=== PATIENT | male | born 1935 | race Caucasian/White ===

== ENCOUNTER 2016-07-24 13:34 | Emergency (ER) | payer OTHER ==
[2016-07-24 14:52] VITALS: RESP 16
[2016-07-24] MEDS ORDERED: DIPH,PERTUS(ACELL)TETVAC-LF 0.5 ML VIAL IM ONE (15:20)
--- NOTE | 2016-07-24 15:35 | ED ---
Wound/Laceration HPI - General Chief Complaint: Wound/Laceration Stated Complaint: Lac/Hand /steel cutter/[facility] Time Seen by Provider: 07/24/16 15:19 Source: patient Mode of arrival: ambulatory Limitations: no limitations - History of Present Illness Initial Comments: Patient is a 81-year-old right-handed male presenting to the emergency department with complaints of laceration to his left hand. Patient states he was at work opening up boxes with a box lidder when the knife slipped and he cut his hand. Onset of injury approximately one hour prior to arrival. Patient states that he immediately washed out his wound and applied a dressing. Patient denies previous injury or surgery to left upper extremity. Place: work Patient Tetanus UTD: No Context: accidental, sharp object use Associated Symptoms: pain (Patient currently denies pain, numbness or tingling) Treatments Prior to Arrival: bandage - Related Data Home Medications Medication Instructions Recorded Confirmed Aspirin 81 mg PO DAILY 07/24/16 07/24/16 Atorvastatin [Lipitor] 40 mg PO DAILY 07/24/16 07/24/16 Losartan Potassium 100 mg PO 07/24/16 Pioglitazone HCl/Metformin HCl 1 each PO 07/24/16 07/24/16 [Pioglitazone-Metformin 15850] Tragenta 5 mg PO DAILY 07/24/16 glipiZIDE [Glucotrol] 5 mg PO BID 07/24/16 07/24/16 Allergies Allergy/AdvReac Type Severity Reaction Status Date / Time No Known Allergies Allergy Verified 07/24/16 14:52 Review of Systems ROS Statement: Those systems with pertinent positive or pertinent negative responses have been documented in the HPI. ROS Other: All systems not noted in ROS Statement are negative. Past Medical History Past Medical History: Diabetes Mellitus Additional Past Medical History / Comment(s): kidney stones History of Any Multi-Drug Resistant Organisms: None Reported Past Surgical History: No Surgical Hx Reported Past Psychological History: No Psychological Hx Reported Smoking Status: Never smoker Past Alcohol Use History: None Reported Past Drug Use History: None Reported General Exam Limitations: no limitations General appearance: alert, in no apparent distress Head exam: Present: atraumatic, normocephalic, normal inspection Eye exam: Present: normal appearance ENT exam: Present: normal exam, normal oropharynx, mucous membranes moist Neck exam: Present: normal inspection, full ROM Respiratory exam: Present: normal lung sounds bilaterally. Absent: respiratory distress, wheezes, rales, rhonchi, stridor Cardiovascular Exam: Present: regular rate, normal rhythm, normal heart sounds GI/Abdominal exam: Present: soft, normal bowel sounds. Absent: tenderness Left Forearm Wrist exam: Present: full ROM, tenderness, laceration (9 mm linear laceration to radial aspect of left forearm palmar aspect) Hand Wrist exam: Present: normal inspection, full ROM, laceration. Absent: tenderness, swelling Neuro motor exam: Present: wrist extension intact, thumb opposition intact, thumb IP flexion intact, thumb adduction intact, fingers 2-5 abduction intact Neurosensory exam: Present: 2-point discrimination, radial nerve intact, ulnar nerve intact, median nerve intact Vascular: Present: normal capillary refill, radial pulse, brachial pulse, ulnar pulse. Absent: vascular compromise Neurological exam: Present: alert, oriented X3, normal gait, other (No focal deficits noted) Psychiatric exam: Present: normal affect, normal mood Skin exam: Present: warm, dry, intact, normal color. Absent: rash Course Vital Signs 07/24/16 14:48 Temperature 97.8 F Pulse Rate 82 Respiratory 16 Rate Blood Pressure 164/81 O2 Sat by Pulse 97 Oximetry Procedures - Laceration Laceration #1 Consent Obtained: verbal consent Time Out Performed: No Indication: laceration Site: hand (9 cm linear laceration extending from palmar side of left thumb to wrist.) Size (cm): 9 Description: linear Depth: simple, single layer Anesthetic Used: lidocaine 1% Anesthesia Technique: local infiltration Amount (mls): 3 Pre-repair: wound explored, irrigated extensively, deep structures intact Type of Sutures: nylon Size of Sutures: 5-0 Number of Sutures: 15 Technique: simple, interrupted Patient Tolerated Procedure: well, no complications Medical Decision Making - Medical Decision Making Laceration to left hand. X-ray negative for dislocation or fracture. Laceration sutured. Patient tolerated well. Wound care instructions provided. Discharge instructions and return parameters reviewed. 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 Additional scattered osteoarthritic changes such as at the first and second MCP joint and within the DIP joint. No acute fracture, subluxation, or dislocation. As read by radiologist, Dr. Shelley. Disposition Clinical Impression: Laceration of wrist, left Disposition: HOME SELF-CARE Condition: Good Instructions: Care For Your Stitches (ED), Laceration (ED) Additional Instructions: Postop wound care: Keep wound dry and clean for 24 hours; if dressing accidentally becomes wet, change dressing immediately. Gently clean the edges of the wound daily with a cotton swab saturated with peroxide to remove crust. Return immediately if signs of infection occur such as redness or red streaks progressing up and extremity, increasing pain, swelling, or fevers. Finish oral antibiotics as prescribed. Please return for suture removal in 10 days or sooner if complications. Please return to the emergency department if symptoms do not improve or get worse. Follow-up with orthopedic service with symptoms of numbness or tingling. Follow-up with primary care as necessary. Referrals: Dmitry Roach III, MD [Primary Care Provider] - 1-2 days Ronald Degroot MD [STAFF PHYSICIAN] - 1-2 days Time of Disposition: 17:01
--- NOTE | 2016-07-24 16:38 | XR ---
EXAMINATION TYPE: XR hand complete LT DATE OF EXAM: 07/24/2016 4:11 PM COMPARISON: NONE HISTORY: 81-year-old male laceration to the first digit on box loader, pain. TECHNIQUE: 3 views FINDINGS: Moderate to advanced degenerative change at the first CMC joint and triscaphe joint. Additional scatt ered osteoarthritic changes such as at the first and second MCP joint and within the DIP joints. No a cute fracture, subluxation, or dislocation. 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 No acute osseous abnormality seen.
[2016-07-24 17:36] VITALS: BP 148/72; PULSE 77; TEMP 98.3
== END 2016-07-24 17:25 | disposition home or self-care (01) ==
LOC: EC 13:34
DX: S61.512A Laceration without foreign body of left wrist, initial encounter (principal); S61.012A Laceration without foreign body of left thumb without damage to nail, initial encounter; M19.042 Primary osteoarthritis, left hand; E11.9 Type 2 diabetes mellitus without complications; Z79.82 Long term (current) use of aspirin; Z79.84 Long term (current) use of oral hypoglycemic drugs; Z79.899 Other long term (current) drug therapy; Z23 Encounter for immunization; W45.8XXA Other foreign body or object entering through skin, initial encounter; Y92.69 Other specified industrial and construction area as the place of occurrence of the external cause; Y93.89 Activity, other specified; Y99.0 Civilian activity done for income or pay
CPT/HCPCS: 12004; 90471; 90715; 99283

== ENCOUNTER 2019-07-15 09:03 | Inpatient (IN) | payer OTHER, MEDICARE ==
[2019-07-15] MEDS ORDERED: ONDANSETRON 4 MG/2 ML VIAL IVP STA (09:40)
[2019-07-15] MEDS ORDERED: SODIUM CHLORIDE 0.9% 1,000 ML IV STA (09:40)
--- NOTE | 2019-07-15 10:03 | ED ---
General Adult HPI - General Chief complaint: Upper Respiratory Infection Stated complaint: medication reaction Time Seen by Provider: 07/15/19 09:19 Source: patient, family, RN notes reviewed Mode of arrival: wheelchair Limitations: no limitations - History of Present Illness Initial comments: 84-year-old male with a past medical history of diabetes presents to the emergency department for a chief complaint of weakness. Patient has been weak for about a week now. He has also had nausea vomiting for about a week. Patient's states he started on iron tablets around the same time. Patient has also had a cough. Minimal shortness of breath associated with this. Subjective fevers at home. Patient has no other complaints at this time includi ng chest pain, abdominal pain, headache, or visual changes. - Related Data Home Medications Medication Instructions Recorded Confirmed Aspirin 81 mg PO DAILY 07/24/16 07/15/19 Atorvastatin [Lipitor] 40 mg PO DAILY 07/24/16 07/15/19 Losartan Potassium 100 mg PO DAILY 07/24/16 07/15/19 Pioglitazone HCl/Metformin HCl 1 each PO Q12H 07/24/16 07/15/19 [Pioglitazone-Metformin 15850] glipiZIDE [Glucotrol] 5 mg PO BID 07/24/16 07/15/19 Ascorbic Acid [Vitamin C] 250 mg PO BID 07/15/19 07/15/19 Ferrous Sulfate [Iron] 325 mg PO BID 07/15/19 07/15/19 Hydrochlorothiazide 25 mg PO DAILY 07/15/19 07/15/19 Levothyroxine Sodium 25 mcg PO DAILY 07/15/19 07/15/19 Lidocaine 5% Patch [Lidoderm] 1 patch TOPICAL DAILY 07/15/19 07/15/19 Tamsulosin HCl [Flomax] 0.4 mg PO DAILY 07/15/19 07/15/19 sitaGLIPtin [Januvia] 100 mg PO DAILY 07/15/19 07/15/19 Allergies Allergy/AdvReac Type Severity Reaction Status Date / Time No Known Allergies Allergy Verified 07/15/19 11:34 Review of Systems ROS Statement: Those systems with pertinent positive or pertinent negative responses have been documented in the HPI. ROS Other: All systems not noted in ROS Statement are negative. Past Medical History Past Medical History: Diabetes Mellitus Additional Past Medical History / Comment(s): kidney stones History of Any Multi-Drug Resistant Organisms: None Reported Past Surgical History: No Surgical Hx Reported Past Psychological History: No Psychological Hx Reported Smoking Status: Never smoker Past Alcohol Use History: None Reported Past Drug Use History: None Reported General Exam Limitations: no limitations General appearance: alert, in no apparent distress Head exam: Present: atraumatic, normocephalic, normal inspection Eye exam: Present: normal appearance, PERRL, EOMI. Absent: scleral icterus, conjunctival injection, periorbital swelling ENT exam: Present: normal exam, mucous membranes moist Neck exam: Present: normal inspection, full ROM. Absent: tenderness, meningismus, lymphadenopathy Respiratory exam: Present: normal lung sounds bilaterally. Absent: respiratory distress, wheezes, rales, rhonchi, stridor Cardiovascular Exam: Present: regular rate, normal rhythm, normal heart sounds. Absent: systolic murmur, diastolic murmur, rubs, gallop, clicks GI/Abdominal exam: Present: soft, normal bowel sounds. Absent: distended, tenderness, guarding, rebound, rigid Neurological exam: Present: alert Course Vital Signs 07/15/19 07/15/19 07/15/19 09:11 10:05 10:07 Temperature 97.8 F Pulse Rate 97 92 Respiratory 18 17 Rate Blood Pressure 98/63 122/83 O2 Sat by Pulse 98 98 Oximetry 07/15/19 11:00 Temperature Pulse Rate 92 Respiratory 18 Rate Blood Pressure 137/69 O2 Sat by Pulse 98 Oximetry EKG Findings - EKG Comments: EKG Findings:: Normal sinus rhythm, ventricular rate 85, MT interval 146, QTC 454 Medical Decision Making - Medical Decision Making Vitals are stable. Physical exam is unremarkable however patient is noted to be somewhat short of breath. CBC did unfortunately reveal a hemoglobin of 5.8. CMP does show an elevated glucose of 274. On reevaluation patient does admit to black stool however thought this was probably secondary to his iron. However of occult blood is positive. Patient was given 1 unit of packed red blood cells. He was admitted to the hospital. GI was consulted. - Lab Data Result diagrams: 07/15/19 10:00 07/15/19 10:00 Lab Results 07/15/19 07/15/19 07/15/19 Range/Units 10:00 10:00 10:00 WBC 6.1 (3.8-10.6) k/uL RBC 2.95 L (4.30-5.90) m/uL Hgb 5.8 L* (13.0-17.5) gm/dL Hct 20.1 L (39.0-53.0) % MCV 68.1 L (80.0-100.0) fL MCH 19.7 L (25.0-35.0) pg MCHC 29.0 L (31.0-37.0) g/dL RDW 19.6 H (11.5-15.5) % Plt Count 324 (150-450) k/uL Neutrophils % 80 % Lymphocytes % 11 % Monocytes % 6 % Eosinophils % 1 % Basophils % 0 % Neutrophils # 4.9 (1.3-7.7) k/uL Lymphocytes # 0.7 L (1.0-4.8) k/uL Monocytes # 0.4 (0-1.0) k/uL Eosinophils # 0.1 (0-0.7) k/uL Basophils # 0.0 (0-0.2) k/uL Hypochromasia Marked Poikilocytosis Moderate Anisocytosis Slight Microcytosis Marked PT 10.2 (9.0-12.0) sec INR 1.0 (<1.2) APTT 20.6 L (22.0-30.0) sec Sodium (137-145) mmol/L Potassium (3.5-5.1) mmol/L Chloride (98-107) mmol/L Carbon Dioxide (22-30) mmol/L Anion Gap mmol/L BUN (9-20) mg/dL Creatinine (0.66-1.25) mg/dL Est GFR (CKD-EPI)AfAm (>60 ml/min/1.73 sqM) Est GFR (CKD-EPI)NonAf (>60 ml/min/1.73 sqM) Glucose (74-99) mg/dL Lactic Ac Sepsis Rflx Plasma Lactic Acid Frederick (0.7-2.0) mmol/L Calcium (8.4-10.2) mg/dL Magnesium (1.6-2.3) mg/dL Total Bilirubin (0.2-1.3) mg/dL AST (17-59) U/L ALT (4-49) U/L Alkaline Phosphatase (38-126) U/L Troponin I (0.000-0.034) ng/mL Total Protein (6.3-8.2) g/dL Albumin (3.5-5.0) g/dL Urine Color Yellow Urine Appearance Clear (Clear) Urine pH 7.5 (5.0-8.0) Ur Specific [place] 1.013 (1.001-1.035) Urine Protein Negative (Negative) Urine Glucose (UA) 3+ H (Negative) Urine Ketones Negative (Negative) Urine Blood Negative (Negative) Urine Nitrite Negative (Negative) Urine Bilirubin Negative (Negative) Urine Urobilinogen <2.0 (<2.0) mg/dL Ur Leukocyte Esterase Large H (Negative) Urine WBC 12 H (0-5) /hpf Urine Bacteria Rare H (None) /hpf Urine Mucus Rare H (None) /hpf Stool Occult Blood (Negative) Coronavirus (PCR) (Not Detectd) Blood Type Blood Type Confirm Blood Type Recheck Bld Type Recheck Status Antibody Screen Crossmatch Spec Expiration Date 07/15/19 07/15/19 07/15/19 Range/Units 10:00 10:00 10:00 WBC (3.8-10.6) k/uL RBC (4.30-5.90) m/uL Hgb (13.0-17.5) gm/dL Hct (39.0-53.0) % MCV (80.0-100.0) fL MCH (25.0-35.0) pg MCHC (31.0-37.0) g/dL RDW (11.5-15.5) % Plt Count (150-450) k/uL Neutrophils % % Lymphocytes % % Monocytes % % Eosinophils % % Basophils % % Neutrophils # (1.3-7.7) k/uL Lymphocytes # (1.0-4.8) k/uL Monocytes # (0-1.0) k/uL Eosinophils # (0-0.7) k/uL Basophils # (0-0.2) k/uL Hypochromasia Poikilocytosis Anisocytosis Microcytosis PT (9.0-12.0) sec INR (<1.2) APTT (22.0-30.0) sec Sodium 130 L (137-145) mmol/L Potassium 4.1 (3.5-5.1) mmol/L Chloride 93 L (98-107) mmol/L Carbon Dioxide 23 (22-30) mmol/L Anion Gap 14 mmol/L BUN 22 H (9-20) mg/dL Creatinine 0.83 (0.66-1.25) mg/dL Est GFR (CKD-EPI)AfAm >90 (>60 ml/min/1.73 sqM) Est GFR (CKD-EPI)NonAf 82 (>60 ml/min/1.73 sqM) Glucose 274 H (74-99) mg/dL Lactic Ac Sepsis Rflx Plasma Lactic Acid Frederick 3.5 H* (0.7-2.0) mmol/L Calcium 9.2 (8.4-10.2) mg/dL Magnesium 1.8 (1.6-2.3) mg/dL Total Bilirubin 0.2 (0.2-1.3) mg/dL AST 22 (17-59) U/L ALT 18 (4-49) U/L Alkaline Phosphatase 80 (38-126) U/L Troponin I <0.012 (0.000-0.034) ng/mL Total Protein 6.3 (6.3-8.2) g/dL Albumin 3.6 (3.5-5.0) g/dL Urine Color Urine Appearance (Clear) Urine pH (5.0-8.0) Ur Specific [place] (1.001-1.035) Urine Protein (Negative) Urine Glucose (UA) (Negative) Urine Ketones (Negative) Urine Blood (Negative) Urine Nitrite (Negative) Urine Bilirubin (Negative) Urine Urobilinogen (<2.0) mg/dL Ur Leukocyte Esterase (Negative) Urine WBC (0-5) /hpf Urine Bacteria (None) /hpf Urine Mucus (None) /hpf Stool Occult Blood (Negative) Coronavirus (PCR) (Not Detectd) Blood Type Blood Type Confirm Blood Type Recheck Bld Type Recheck Status Antibody Screen Crossmatch Spec Expiration Date 07/15/19 07/15/19 07/15/19 Range/Units 10:00 10:02 10:05 WBC (3.8-10.6) k/uL RBC (4.30-5.90) m/uL Hgb (13.0-17.5) gm/dL Hct (39.0-53.0) % MCV (80.0-100.0) fL MCH (25.0-35.0) pg MCHC (31.0-37.0) g/dL RDW (11.5-15.5) % Plt Count (150-450) k/uL Neutrophils % % Lymphocytes % % Monocytes % % Eosinophils % % Basophils % % Neutrophils # (1.3-7.7) k/uL Lymphocytes # (1.0-4.8) k/uL Monocytes # (0-1.0) k/uL Eosinophils # (0-0.7) k/uL Basophils # (0-0.2) k/uL Hypochromasia Poikilocytosis Anisocytosis Microcytosis PT (9.0-12.0) sec INR (<1.2) APTT (22.0-30.0) sec Sodium (137-145) mmol/L Potassium (3.5-5.1) mmol/L Chloride (98-107) mmol/L Carbon Dioxide (22-30) mmol/L Anion Gap mmol/L BUN (9-20) mg/dL Creatinine (0.66-1.25) mg/dL Est GFR (CKD-EPI)AfAm (>60 ml/min/1.73 sqM) Est GFR (CKD-EPI)NonAf (>60 ml/min/1.73 sqM) Glucose (74-99) mg/dL Lactic Ac Sepsis Rflx Plasma Lactic Acid Frederick (0.7-2.0) mmol/L Calcium (8.4-10.2) mg/dL Magnesium (1.6-2.3) mg/dL Total Bilirubin (0.2-1.3) mg/dL AST (17-59) U/L ALT (4-49) U/L Alkaline Phosphatase (38-126) U/L Troponin I (0.000-0.034) ng/mL Total Protein (6.3-8.2) g/dL Albumin (3.5-5.0) g/dL Urine Color Urine Appearance (Clear) Urine pH (5.0-8.0) Ur Specific [place] (1.001-1.035) Urine Protein (Negative) Urine Glucose (UA) (Negative) Urine Ketones (Negative) Urine Blood (Negative) Urine Nitrite (Negative) Urine Bilirubin (Negative) Urine Urobilinogen (<2.0) mg/dL Ur Leukocyte Esterase (Negative) Urine WBC (0-5) /hpf Urine Bacteria (None) /hpf Urine Mucus (None) /hpf Stool Occult Blood Positive (Negative) Coronavirus (PCR) Not Detected (Not Detectd) Blood Type O Positive Blood Type Confirm Blood Type Recheck No Previous Record Bld Type Recheck Status CABO Indicated Antibody Screen NEGATIVE Crossmatch See Detail Spec Expiration Date 07/18/2019 - 230107/15/19 07/15/19 Range/Units 10:05 10:28 WBC (3.8-10.6) k/uL RBC (4.30-5.90) m/uL Hgb (13.0-17.5) gm/dL Hct (39.0-53.0) % MCV (80.0-100.0) fL MCH (25.0-35.0) pg MCHC (31.0-37.0) g/dL RDW (11.5-15.5) % Plt Count (150-450) k/uL Neutrophils % % Lymphocytes % % Monocytes % % Eosinophils % % Basophils % % Neutrophils # (1.3-7.7) k/uL Lymphocytes # (1.0-4.8) k/uL Monocytes # (0-1.0) k/uL Eosinophils # (0-0.7) k/uL Basophils # (0-0.2) k/uL Hypochromasia Poikilocytosis Anisocytosis Microcytosis PT (9.0-12.0) sec INR (<1.2) APTT (22.0-30.0) sec Sodium (137-145) mmol/L Potassium (3.5-5.1) mmol/L Chloride (98-107) mmol/L Carbon Dioxide (22-30) mmol/L Anion Gap mmol/L BUN (9-20) mg/dL Creatinine (0.66-1.25) mg/dL Est GFR (CKD-EPI)AfAm (>60 ml/min/1.73 sqM) Est GFR (CKD-EPI)NonAf (>60 ml/min/1.73 sqM) Glucose (74-99) mg/dL Lactic Ac Sepsis Rflx Y Plasma Lactic Acid Frederick (0.7-2.0) mmol/L Calcium (8.4-10.2) mg/dL Magnesium (1.6-2.3) mg/dL Total Bilirubin (0.2-1.3) mg/dL AST (17-59) U/L ALT (4-49) U/L Alkaline Phosphatase (38-126) U/L Troponin I (0.000-0.034) ng/mL Total Protein (6.3-8.2) g/dL Albumin (3.5-5.0) g/dL Urine Color Urine Appearance (Clear) Urine pH (5.0-8.0) Ur Specific [place] (1.001-1.035) Urine Protein (Negative) Urine Glucose (UA) (Negative) Urine Ketones (Negative) Urine Blood (Negative) Urine Nitrite (Negative) Urine Bilirubin (Negative) Urine Urobilinogen (<2.0) mg/dL Ur Leukocyte Esterase (Negative) Urine WBC (0-5) /hpf Urine Bacteria (None) /hpf Urine Mucus (None) /hpf Stool Occult Blood (Negative) Coronavirus (PCR) (Not Detectd) Blood Type Blood Type Confirm O Positive Blood Type Recheck Bld Type Recheck Status Antibody Screen Crossmatch Spec Expiration Date Disposition Clinical Impression: Anemia Disposition: ADMITTED IP TO THIS [facility] Condition: Fair Is patient prescribed a controlled substance at d/c from ED?: No Time of Disposition: 10:25
[2019-07-15 10:05] LABS: Anisocytosis Slight; Basophils % (A) 0 %; Eosinophils # (A) 0.1 k/uL (0-0.7); Eosinophils % (A) 1 %; HCT 20.1 % (39.0-53.0); Hypochromasia Marked; Lymphocytes # (A) 0.7 k/uL (1.0-4.8); Lymphocytes % (A) 11 %; MCH 19.7 pg (25.0-35.0); MCV 68.1 fL (80.0-100.0); Mean Platelet Volume 7.3; Microcytosis Marked; Monocytes # (A) 0.4 k/uL (0-1.0); Monocytes % (A) 6 %; Neutrophils # (A) 4.9 k/uL (1.3-7.7); Neutrophils % (A) 80 %; Platelet Count 324 k/uL (150-450); Poikilocytosis Moderate; RBC 2.95 m/uL (4.30-5.90); RDW 19.6 % (11.5-15.5); WBC 6.1 k/uL (3.8-10.6)
[2019-07-15 10:11] LABS: HGB 5.8 gm/dL (13.0-17.5)
[2019-07-15 10:14] LABS: ALT 18 U/L (4-49); AST 22 U/L (17-59); African American GFR (CKD) >90 (>60 ml/min/1.73 sqM); Albumin 3.6 g/dL (3.5-5.0); Alkaline Phosphatase 80 U/L (38-126); Anion Gap 14 mmol/L; Blood Urea Nitrogen 22 mg/dL (9-20); Calcium 9.2 mg/dL (8.4-10.2); Carbon Dioxide 23 mmol/L (22-30); Chloride 93 mmol/L (98-107); Glucose 274 mg/dL (74-99); Magnesium 1.8 mg/dL (1.6-2.3); Non-African American GFR(CKD) 82 (>60 ml/min/1.73 sqM); Sodium 130 mmol/L (137-145); Total Bilirubin 0.2 mg/dL (0.2-1.3); Total Protein 6.3 g/dL (6.3-8.2)
[2019-07-15 10:15] LABS: Potassium 4.1 mmol/L (3.5-5.1)
[2019-07-15] MEDS ORDERED: NALOXONE 0.4 MG/ML 1 ML VIAL IV PRN (10:25)
[2019-07-15 10:26] LABS: Appearance,Urine Clear (Clear); Bacteria,Urine Rare /hpf; Bilirubin,Urine Negative (Negative); Blood,Urine Negative (Negative); Color,Urine Yellow; Glucose,Urine (UA) 3+ (Negative); Ketones,Urine Negative (Negative); Leukocyte Esterase,Urine Large (Negative); Mucus,Urine Rare /hpf; Nitrite,Urine Negative (Negative); PH, Urine 7.5 (5.0-8.0); Protein,Urine Negative (Negative); Specific Gravity,Urine 1.013 (1.001-1.035); Urobilinogen,Urine <2.0 mg/dL (<2.0); WBC,Urine 12 /hpf (0-5)
[2019-07-15 10:30] LABS: Partial Thromboplastin Time 20.6 sec (22.0-30.0); Prothrombin Time 10.2 sec (9.0-12.0)
[2019-07-15] MEDS ORDERED: SODIUM CHLORIDE 0.9% 1,000 ML IV SCH (10:30)
--- NOTE | 2019-07-15 10:36 | XR ---
EXAMINATION TYPE: XR chest 1V portable DATE OF EXAM: 07/15/2019 HISTORY: Shortness of breath. COMPARISON: None. TECHNIQUE: Single view of the chest is submitted. FINDINGS: Demonstrated are scattered senescent parenchymal change. There is no evidence for focal infiltrate. The heart is stable. Hilar and mediastinal structures are within normal limits. Degenerative changes are seen of the dorsal spine. IMPRESSION: 1. Chronic changes without evidence for acute pulmonary disease.
--- NOTE | 2019-07-15 12:47 | P.HPIM ---
History of Present Illness Patient is pleasant 84-year-old female came in today was provided with compensative generalized weakness found to have severe anemia looked pale patient was apparently having the nausea vomiting and no hematemesis but had had dark stools. Patient is found to have hemoglobin of 5 patient denied any chest pain fever chills patient has minimal non-productive cough. Patient has significant hearing problems because of which much of the history cannot be obtained Review of Systems All other review of systems is negative except for those mentioned in HPI Past Medical History Past Medical History: Diabetes Mellitus Additional Past Medical History / Comment(s): kidney stones History of Any Multi-Drug Resistant Organisms: None Reported Past Surgical History: No Surgical Hx Reported Past Psychological History: No Psychological Hx Reported Smoking Status: Never smoker Past Alcohol Use History: None Reported Past Drug Use History: None Reported Medications and Allergies Home Medications Medication Instructions Recorded Confirmed Type Aspirin 81 mg PO DAILY 07/24/16 07/15/19 History Atorvastatin [Lipitor] 40 mg PO DAILY 07/24/16 07/15/19 History Losartan Potassium 100 mg PO DAILY 07/24/16 07/15/19 History Pioglitazone HCl/Metformin HCl 1 each PO Q12H 07/24/16 07/15/19 History [Pioglitazone-Metformin 29-] glipiZIDE [Glucotrol] 5 mg PO BID 07/24/16 07/15/19 History Ascorbic Acid [Vitamin C] 250 mg PO BID 07/15/19 07/15/19 History Ferrous Sulfate [Iron] 325 mg PO BID 07/15/19 07/15/19 History Hydrochlorothiazide 25 mg PO DAILY 07/15/19 07/15/19 History Levothyroxine Sodium 25 mcg PO DAILY 07/15/19 07/15/19 History Lidocaine 5% Patch [Lidoderm] 1 patch TOPICAL DAILY 07/15/19 07/15/19 History Tamsulosin HCl [Flomax] 0.4 mg PO DAILY 07/15/19 07/15/19 History sitaGLIPtin [Januvia] 100 mg PO DAILY 07/15/19 07/15/19 History Allergies Allergy/AdvReac Type Severity Reaction Status Date / Time No Known Allergies Allergy Verified 07/15/19 11:34 Physical Exam Vitals: Vital Signs Temp Pulse Resp BP Pulse Ox 07/15/19 11:00 92 18 137/69 98 07/15/19 10:07 122/83 07/15/19 10:05 92 17 98 07/15/19 09:11 97.8 F 97 18 98/63 98 Intake and Output 07/14/19 07/15/19 07/15/19 22:59 06:59 14:59 Other: Weight 83.007 kg PHYSICAL EXAMINATION: GENERAL: The patient is alert and oriented x3, not in any acute distress. Well developed, well nourished. HEENT: Pupils are round and equally reacting to light. EOMI. No scleral icterus does have conjunctival pallor. Normocephalic, atraumatic. No pharyngeal erythema. No thyromegaly. CARDIOVASCULAR: S1 and S2 present. No murmurs, rubs, or gallops. PULMONARY: Chest is clear to auscultation, no wheezing or crackles. ABDOMEN: Soft, nontender, nondistended, normoactive bowel sounds. No palpable organomegaly. MUSCULOSKELETAL: No joint swelling or deformity. EXTREMITIES: No cyanosis, clubbing, or pedal edema. NEUROLOGICAL: Gross neurological examination did not reveal any focal deficits. SKIN: No rashes. Results CBC & Chem 7: 07/15/19 10:00 07/15/19 10:00 Labs: Abnormal Lab Results - Last 24 Hours (Table) 07/15/19 07/15/19 07/15/19 Range/Units 10:00 10:00 10:00 RBC 2.95 L (4.30-5.90) m/uL Hgb 5.8 L* (13.0-17.5) gm/dL Hct 20.1 L (39.0-53.0) % MCV 68.1 L (80.0-100.0) fL MCH 19.7 L (25.0-35.0) pg MCHC 29.0 L (31.0-37.0) g/dL RDW 19.6 H (11.5-15.5) % Lymphocytes # 0.7 L (1.0-4.8) k/uL APTT 20.6 L (22.0-30.0) sec Sodium (137-145) mmol/L Chloride (98-107) mmol/L BUN (9-20) mg/dL Glucose (74-99) mg/dL Plasma Lactic Acid Frederick (0.7-2.0) mmol/L Urine Glucose (UA) 3+ H (Negative) Ur Leukocyte Esterase Large H (Negative) Urine WBC 12 H (0-5) /hpf Urine Bacteria Rare H (None) /hpf Urine Mucus Rare H (None) /hpf Crossmatch 07/15/19 07/15/19 07/15/19 Range/Units 10:00 10:00 10:02 RBC (4.30-5.90) m/uL Hgb (13.0-17.5) gm/dL Hct (39.0-53.0) % MCV (80.0-100.0) fL MCH (25.0-35.0) pg MCHC (31.0-37.0) g/dL RDW (11.5-15.5) % Lymphocytes # (1.0-4.8) k/uL APTT (22.0-30.0) sec Sodium 130 L (137-145) mmol/L Chloride 93 L (98-107) mmol/L BUN 22 H (9-20) mg/dL Glucose 274 H (74-99) mg/dL Plasma Lactic Acid Frederick 3.5 H* (0.7-2.0) mmol/L Urine Glucose (UA) (Negative) Ur Leukocyte Esterase (Negative) Urine WBC (0-5) /hpf Urine Bacteria (None) /hpf Urine Mucus (None) /hpf Crossmatch See Detail Assessment and Plan Plan: Possible acute upper GI bleed and acute blood loss anemia from that patient will be transfused 3 units patient will be started on Protonix. -Hyponatremia hypovolemic hyponatremia from diuretics and GI bleed patient will be started on IV fluids at 100 mL per hour -Lactic acidosis secondary to severe anemia and decreased organ perfusion IV fluids as mentioned above no evidence of infection at this time. -Asymptomatic bacteriuria will not require any antibiotics -Type 2 diabetes mellitus patient will be continue the rest of the oral hypoglycemic agents were discontinued and patient will be started on sliding scale insulin -Hypertension with concerns of hypotension from GI bleed aren't hold off on losartan temporary -Hypothyroidism continue with levothyroxine -Hyperlipidemia continue with the Lipitor DVT prophylaxis SCDs
[2019-07-15] MEDS ORDERED: ACETAMINOPHEN TAB 325 MG TAB PO PRN (13:49)
[2019-07-15] MEDS: INSULIN ASPART (NovoLOG) 100 UNIT/ML VIAL SQ SCH ×3 (13:53→21:09)
[2019-07-15] MEDS: SODIUM CHLORIDE 0.9% 1,000 ML IV SCH (15:21)
[2019-07-15] MEDS: PANTOPRAZOLE 40 MG/10 ML VIAL IVP SCH ×2 (15:21→21:10)
[2019-07-15 16:46] LABS: Glucose,Whole Blood 283 mg/dL (75-99)
[2019-07-15] MEDS ORDERED: INSULIN ASPART (NovoLOG) 100 UNIT/ML VIAL SQ SCH (17:30)
[2019-07-15 21:00] LABS: Glucose,Whole Blood 219 mg/dL (75-99)
[2019-07-16 06:22] LABS: Glucose,Whole Blood 194 mg/dL (75-99)
[2019-07-16] MEDS: INSULIN ASPART (NovoLOG) 100 UNIT/ML VIAL SQ SCH ×4 (06:29→21:14)
[2019-07-16] MEDS: SODIUM CHLORIDE 0.9% 1,000 ML IV SCH (06:29)
[2019-07-16 07:23] LABS: Anisocytosis Moderate; HCT 24.5 % (39.0-53.0); Hypochromasia Marked; MCH 22.1 pg (25.0-35.0); MCHC 30.2 g/dL (31.0-37.0); Mean Platelet Volume 7.7; Microcytosis Marked; Platelet Count 316 k/uL (150-450); Poikilocytosis Marked; RBC 3.35 m/uL (4.30-5.90); RDW 21.8 % (11.5-15.5); WBC 5.8 k/uL (3.8-10.6)
[2019-07-16 07:31] LABS: HGB 7.4 gm/dL (13.0-17.5); MCV 73.1 fL (80.0-100.0)
[2019-07-16 07:44] LABS: African American GFR (CKD) >90 (>60 ml/min/1.73 sqM); Anion Gap 8 mmol/L; Blood Urea Nitrogen 14 mg/dL (9-20); Calcium 8.7 mg/dL (8.4-10.2); Carbon Dioxide 26 mmol/L (22-30); Chloride 100 mmol/L (98-107); Glucose 172 mg/dL (74-99); Non-African American GFR(CKD) 84 (>60 ml/min/1.73 sqM); Potassium 4.2 mmol/L (3.5-5.1); Sodium 134 mmol/L (137-145)
[2019-07-16] MEDS ORDERED: ONDANSETRON 4 MG/2 ML VIAL IVP PRN (08:44)
[2019-07-16] MEDS: LIDOCAINE 5% PATCH TOPICAL SCH (09:09)
[2019-07-16] MEDS: PANTOPRAZOLE 40 MG/10 ML VIAL IVP SCH ×2 (09:09→21:14)
[2019-07-16] MEDS: ATORVASTATIN 40 MG TAB PO SCH (09:10)
[2019-07-16] MEDS: LEVOTHYROXINE 25 MCG TAB PO SCH (09:10)
[2019-07-16] MEDS: LINAGLIPTIN 5 MG TABLET PO SCH (09:10)
[2019-07-16] MEDS: TAMSULOSIN 0.4 MG CAP.ER.24H PO SCH (09:11)
[2019-07-16 11:40] LABS: Glucose,Whole Blood 220 mg/dL (75-99)
--- NOTE | 2019-07-16 11:52 | P.PN ---
Subjective Patient is pleasant 84-year-old female came in today was provided with compensative generalized weakness found to have severe anemia looked pale pa jeferson was apparently having the nausea vomiting and no hematemesis but had had dark stools. Patient is found to have hemoglobin of 5 patient denied any chest pain fever chills patient has minimal non-productive cough. Patient has significant hearing problems because of which much of the history cannot be obtained 07/16/2019 Patient is awake and alert, extending up with no difficulty, is still nothing by mouth, he has no abdominal pain this morning but he did not have bowel movement, yesterday when he came to the hospital he has black stool but also he was on iron pills. His hemoglobin was low and history of blood transfusion. His hemoglobin today is 7.4 from 5.8. He denies dysuria however her urine culture is pending. BMP looks unremarkable and sugar controlled. Lactic acid back to normal at 1.4, liver enzymes and troponins are not elevated. Also patient report fall prior to coming to the hospital, he has back pain but also this is a chronic. Number x-ray still pending Review of systems CONSTITUTIONAL: No fever, no malaise, no fatigue. HEENT: No recent visual problems or hearing problems. Denied any sore throat. CARDIOVASCULAR: No orthopnea, PND, no palpitations, no syncope. PULMONARY: No shortness of breath, no cough, no hemoptysis. NEUROLOGICAL: No headaches, no weakness, no numbness. HEMATOLOGICAL: Denies any bleeding or petechiae. GENITOURINARY: Denies any burning micturition, frequency, or urgency. MUSCULOSKELETAL/RHEUMATOLOGICAL: Denies any joint pain, swelling, or any muscle pain. ENDOCRINE: Denies any polyuria or polydipsia. Active Medications Generic Name Dose Route Start Last Admin Trade Name Freq PRN Reason Stop Dose Admin Acetaminophen 650 mg 07/15/19 13:49 Tylenol Tab PO Q6HR PRN Fever and/ or Pain Atorvastatin Calcium 40 mg 07/16/19 09:00 07/16/19 09:10 Lipitor PO 40 mg DAILY AMY Administration Sodium Chloride 1,000 mls @ 75 mls/hr 07/15/19 12:45 07/16/19 06:29 Saline 0.9% IV Not Given .[id number] AMY Insulin Aspart 0 unit 07/15/19 12:30 07/16/19 06:29 Novolog SQ 2 unit ACHS AMY Administration Protocol Levothyroxine Sodium 25 mcg 07/16/19 09:00 07/16/19 09:10 Synthroid PO 25 mcg DAILY AMY Administration Lidocaine 1 patch 07/16/19 09:00 07/16/19 09:09 Lidoderm TOPICAL 1 patch DAILY AMY Administration Linagliptin 5 mg 07/16/19 09:00 07/16/19 09:10 Tradjenta PO 5 mg DAILY AMY Administration Naloxone HCl 0.2 mg 07/15/19 10:25 Narcan IV Q2M PRN Opioid Reversal Ondansetron HCl 4 mg 07/16/19 08:44 Zofran IVP Q6HR PRN Nausea And Vomiting Pantoprazole Sodium 40 mg 07/15/19 12:45 07/16/19 09:09 Protonix IVP 40 mg BID AMY Administration Tamsulosin HCl 0.4 mg 07/16/19 09:00 07/16/19 09:11 Flomax PO 0.4 mg DAILY AMY Administration Objective - Vital Signs Vital signs: Vital Signs Temp 97.6 F 07/16/19 07:45 Pulse 79 07/16/19 07:45 Resp 18 07/16/19 07:45 BP 132/65 07/16/19 07:45 Pulse Ox 96 07/16/19 07:45 Intake & Output 07/15/19 07/16/19 07/16/19 18:59 06:59 18:59 Intake Total 790 2604 Output Total 1320 132 Balance 790 1284 -132 Weight 83.007 kg 81.5 kg Intake: IV 620 PRBC's 620 Intake, IV Titration 1674 Amount Sodium Chloride 0.9% 1, 675 000 ml @ 75 mls/hr IV . [id number] AMY Rx#:[id number] Sodium Chloride 0.9% 1, 999 000 ml @ 999 mls/hr IV . Q1H1M STA Rx#:[id number] Oral 480 Blood Product 310 310 Rc As-1 Unit 0 310 [id number] Rc Cpda-1 Unit 310 [id number] Output: Urine 1320 Post Void Residual 132 Other: Voiding Method Toilet Toilet Toilet Urinal Urinal Urinal # Voids 2 1 - Exam GENERAL: The patient is alert and oriented x3, not in any acute distress. Well developed, well nourished. HEENT: Pupils are round and equally reacting to light. EOMI. No scleral icterus does have conjunctival pallor. Normocephalic, atraumatic. No pharyngeal erythema. No thyromegaly. CARDIOVASCULAR: S1 and S2 present. No murmurs, rubs, or gallops. PULMONARY: Chest is clear to auscultation, no wheezing or crackles. ABDOMEN: Soft, nontender, nondistended, normoactive bowel sounds. No palpable organomegaly. MUSCULOSKELETAL: No joint swelling or deformity. EXTREMITIES: No cyanosis, clubbing, or pedal edema. NEUROLOGICAL: Gross neurological examination did not reveal any focal deficits. SKIN: No rashes. - Labs CBC & Chem 7: 07/16/19 06:26 07/16/19 06:26 Labs: Abnormal Lab Results - Last 24 Hours (Table) 07/15/19 07/15/19 07/15/19 Range/Units 10:02 14:02 16:45 RBC (4.30-5.90) m/uL Hgb (13.0-17.5) gm/dL Hct (39.0-53.0) % MCV (80.0-100.0) fL MCH (25.0-35.0) pg MCHC (31.0-37.0) g/dL RDW (11.5-15.5) % Sodium (137-145) mmol/L Glucose (74-99) mg/dL POC Glucose (mg/dL) 283 H (75-99) mg/dL Plasma Lactic Acid Frederick 2.7 H* (0.7-2.0) mmol/L Crossmatch See Detail 07/15/19 07/16/19 07/16/19 Range/Units 20:59 06:19 06:26 RBC 3.35 L (4.30-5.90) m/uL Hgb 7.4 L D (13.0-17.5) gm/dL Hct 24.5 L (39.0-53.0) % MCV 73.1 L D (80.0-100.0) fL MCH 22.1 L (25.0-35.0) pg MCHC 30.2 L (31.0-37.0) g/dL RDW 21.8 H (11.5-15.5) % Sodium (137-145) mmol/L Glucose (74-99) mg/dL POC Glucose (mg/dL) 219 H 194 H (75-99) mg/dL Plasma Lactic Acid Frederick (0.7-2.0) mmol/L Crossmatch 07/16/19 07/16/19 Range/Units 06:26 11:37 RBC (4.30-5.90) m/uL Hgb (13.0-17.5) gm/dL Hct (39.0-53.0) % MCV (80.0-100.0) fL MCH (25.0-35.0) pg MCHC (31.0-37.0) g/dL RDW (11.5-15.5) % Sodium 134 L (137-145) mmol/L Glucose 172 H (74-99) mg/dL POC Glucose (mg/dL) 220 H (75-99) mg/dL Plasma Lactic Acid Frederick (0.7-2.0) mmol/L Crossmatch Microbiology - Last 24 Hours (Table) 07/15/19 10:00 Urine Culture - Preliminary Urine,Voided Assessment and Plan Assessment: -Possible acute upper GI bleed and acute blood loss anemia from that patient status post 3 units of blood transfusion, continue with Protonix, GI consult. -Hyponatremia hypovolemic hyponatremia from diuretics and GI bleed patient will be started on IV fluids at 100 mL per hour -Lactic acidosis secondary to severe anemia and decreased organ perfusion, came back to normal -Asymptomatic bacteriuria will not require any antibiotics -Type 2 diabetes mellitus patient will be continue the rest of the oral hypoglycemic agents were discontinued and patient will be started on sliding scale insulin -Hypertension with concerns of hypotension from GI bleed aren't hold off on losartan temporary -Hypothyroidism continue with levothyroxine -Hyperlipidemia continue with the Lipitor DVT prophylaxis SCDs, no heparin in view of possible GI bleed
[2019-07-16] MEDS ORDERED: PEG 3350-NA SULF,BICARB,CL/KCL 4,000 ML BOTTLE PO ONE (16:00)
[2019-07-16 16:24] LABS: Glucose,Whole Blood 234 mg/dL (75-99)
--- NOTE | 2019-07-16 16:47 | XR ---
EXAMINATION TYPE: XR lumbar spine 2 or 3V DATE OF EXAM: 07/16/2019 CLINICAL HISTORY: Low back pain since falling at home injury. TECHNIQUE: Frontal and lateral images of the lumbar spine are obtained. COMPARISON: None. FINDINGS: There are 5 lumbar type vertebral bodies identified. The lumbar spine shows dextroconvex scoliosis centered at L2 level without evidence of acute fracture or dislocation. Vertebral body heig hts are within normal limits. Mild to moderate multilevel disc space narrowing and spurring. Facet ar thropathy lower lumbar levels. Vascular calcification overlying abdominal aorta is noted. IMPRESSION: As above.
[2019-07-16] MEDS ORDERED: BISACODYL 5 MG TABLET.DR PO ONE ×2 (18:00)
--- NOTE | 2019-07-16 19:35 | P.CONS ---
History of Present Illness - Reason for Consult Consult date: 07/16/19 Iron deficiency anemia, GI bleed Requesting physician: Tamar Murphy - Chief Complaint Weakness - History of Present Illness 84-year-old male with a medical history significant for dyslipidemia, BPH and diabetes mellitus as well as a recent diagnosis of iron deficiency anemia who presented to the hospital with complaints of nausea, weakness and dark stool. On presentation patient found to be severely anemic with a hemoglobin of 5.8, currently is 7.4 after transfusion. The patient reports a recent diagnosis of iron deficiency anemia. He reports being started on oral iron supplementation. After this occurred patient reports nausea and noticing some dark colored bowel movements. He denies any abdominal pain. He does take aspirin daily. Of note history has been taken in conversation with the patient, on review of the medical record and in discussion with the nursing staff as the patient is hard of hearing and can only provide a limited history. Currently WBC 5.8, hemoglobin 7.4, platelet count 312,000, total bilirubin 0.2, alkaline phosphatase 80, AST 22 and ALTs 18. He denies any history of peptic ulcer disease. He does not believe he is had upper endoscopy in the past but does believe he has a remote history of colonoscopy. Review of Systems REVIEW OF SYSTEMS: CONSTITUTIONAL: Denies any fevers, chills, weight change but he does report fatigue. CARDIOVASCULAR: Denies any chest pain, palpitations high or low blood pressures RESPIRATORY: Denies any shortness of breath, hemoptysis or cough. GENITOURINARY: No dysuria or hematuria, does report a history of BPH. MUSCULOSKELETAL: No weakness reported. SKIN: Denies any new rashes or lesions, jaundice or pallor. PSYCHIATRIC: Denies any depression or anxiety. NEUROLOGY: Denies headache, denies any new focal deficits. EARS/NOSE/THROAT: No recent hearing change, congestion, nasal discharge or sore throat, suffers from hearing impairment at baseline. EYES: No pain in eyes, discharge or change in vision. GASTROINTESTINAL: As per HPI. Past Medical History Past Medical History: Diabetes Mellitus, Hearing Disorder / Deafness, Prostate Disorder, Syncope Additional Past Medical History / Comment(s): kidney stones, type II diabetes, syncope with recent fall with GI bleed on 07/15/19. History of Any Multi-Drug Resistant Organisms: None Reported Past Surgical History: No Surgical Hx Reported Additional Past Surgical History / Comment(s): Kidney stone lithotripsy. Past Psychological History: No Psychological Hx Reported Smoking Status: Never smoker Past Alcohol Use History: None Reported Past Drug Use History: None Reported - Past Family History Mother Family Medical History: CVA/TIA Medications and Allergies Home Medications Medication Instructions Recorded Confirmed Type Aspirin 81 mg PO DAILY 07/24/16 07/15/19 History Atorvastatin [Lipitor] 40 mg PO DAILY 07/24/16 07/15/19 History Losartan Potassium 100 mg PO DAILY 07/24/16 07/15/19 History Pioglitazone HCl/Metformin HCl 1 each PO Q12H 07/24/16 07/15/19 History [Pioglitazone-Metformin 15] glipiZIDE [Glucotrol] 5 mg PO BID 07/24/16 07/15/19 History Ascorbic Acid [Vitamin C] 250 mg PO BID 07/15/19 07/15/19 History Ferrous Sulfate [Iron] 325 mg PO BID 07/15/19 07/15/19 History Hydrochlorothiazide 25 mg PO DAILY 07/15/19 07/15/19 History Levothyroxine Sodium 25 mcg PO DAILY 07/15/19 07/15/19 History Lidocaine 5% Patch [Lidoderm] 1 patch TOPICAL DAILY 07/15/19 07/15/19 History Tamsulosin HCl [Flomax] 0.4 mg PO DAILY 07/15/19 07/15/19 History sitaGLIPtin [Januvia] 100 mg PO DAILY 07/15/19 07/15/19 History Allergies Allergy/AdvReac Type Severity Reaction Status Date / Time No Known Allergies Allergy Verified 07/15/19 11:34 Physical Exam Vitals: Vital Signs Temp Pulse Pulse Resp BP BP Pulse Ox 07/16/19 07:45 97.6 F 79 18 132/65 96 07/16/19 04:00 98.6 F 82 18 143/88 97 07/16/19 00:00 97.9 F 91 18 121/57 96 07/15/19 21:21 97.6 F 94 18 149/70 99 07/15/19 20:00 97.6 F 94 17 149/70 99 07/15/19 16:53 98.1 F 95 16 143/80 99 07/15/19 16:43 98.3 F 97 18 141/67 98 07/15/19 16:15 97 16 07/15/19 16:00 98.3 F 96 18 143/80 98 07/15/19 14:30 103 H 18 07/15/19 14:24 98.0 F 95 18 138/70 96 07/15/19 13:54 98.1 F 97 18 137/74 98 07/15/19 13:44 98.2 F 95 18 138/71 98 Intake and Output 07/15/19 07/16/19 07/16/19 22:59 06:59 14:59 Intake Total 2629 525 Output Total 970 350 132 Balance 1659 175 -132 Intake: IV 620 PRBC's 620 Intake, IV Titration 1149 525 Amount Sodium Chloride 0.9% 1, 150 525 000 ml @ 75 mls/hr IV . [id number] AMY Rx#:[id number] Sodium Chloride 0.9% 1, 999 000 ml @ 999 mls/hr IV . Q1H1M STA Rx#:[id number] Oral 240 Blood Product 620 Rc As-1 Unit 310 [id number] Rc Cpda-1 Unit 310 [id number] Output: Urine 970 350 Post Void Residual 132 Other: Voiding Method Toilet Toilet Toilet Urinal Urinal Urinal # Voids 2 1 Weight 83.007 kg 81.5 kg On physical examination, patient appears comfortable in no apparent distress. HEAD: Normocephalic, atraumatic. EYES: No scleral icterus. No conjunctival injection. MOUTH: No lesions, tongue midline. NECK: Trachea midline, no gross abnormalities. CHEST: Clear to auscultation with no wheezing or rhonchi appreciated. HEART: Regular rate and rhythm. ABDOMEN: Soft, nontender to palpation. Bowel sounds are positive. No organomegaly. No guarding or rigidity. EXTREMITIES: No pedal edema. SKIN: No rashes, no jaundice. NEUROLOGIC: Alert and oriented x3, but hard of hearing. Results CBC & Chem 7: 07/16/19 06:26 07/16/19 06:26 Labs: Abnormal Lab Results - Last 24 Hours (Table) 07/15/19 07/15/19 07/15/19 Range/Units 10:02 14:02 16:45 RBC (4.30-5.90) m/uL Hgb (13.0-17.5) gm/dL Hct (39.0-53.0) % MCV (80.0-100.0) fL MCH (25.0-35.0) pg MCHC (31.0-37.0) g/dL RDW (11.5-15.5) % Sodium (137-145) mmol/L Glucose (74-99) mg/dL POC Glucose (mg/dL) 283 H (75-99) mg/dL Plasma Lactic Acid Frederick 2.7 H* (0.7-2.0) mmol/L Crossmatch See Detail 07/15/19 07/16/19 07/16/19 Range/Units 20:59 06:19 06:26 RBC 3.35 L (4.30-5.90) m/uL Hgb 7.4 L D (13.0-17.5) gm/dL Hct 24.5 L (39.0-53.0) % MCV 73.1 L D (80.0-100.0) fL MCH 22.1 L (25.0-35.0) pg MCHC 30.2 L (31.0-37.0) g/dL RDW 21.8 H (11.5-15.5) % Sodium (137-145) mmol/L Glucose (74-99) mg/dL POC Glucose (mg/dL) 219 H 194 H (75-99) mg/dL Plasma Lactic Acid Frederick (0.7-2.0) mmol/L Crossmatch 07/16/19 Range/Units 06:26 RBC (4.30-5.90) m/uL Hgb (13.0-17.5) gm/dL Hct (39.0-53.0) % MCV (80.0-100.0) fL MCH (25.0-35.0) pg MCHC (31.0-37.0) g/dL RDW (11.5-15.5) % Sodium 134 L (137-145) mmol/L Glucose 172 H (74-99) mg/dL POC Glucose (mg/dL) (75-99) mg/dL Plasma Lactic Acid Frederick (0.7-2.0) mmol/L Crossmatch Microbiology - Last 24 Hours (Table) 07/15/19 10:00 Urine Culture - Preliminary Urine,Voided Chest x-ray: report reviewed (No acute pulmonary disease on chest x-ray.) Assessment and Plan (1) Iron deficiency anemia Narrative/Plan: 84-year-old male with a recent diagnosis of iron deficiency anemia presenting with weakness and nausea as well as dark-colored stool. Stool became dark after starting iron supplementation in the outpatient setting. Hemoglobin 5.8 on presentation with microcytic indices. Currently hemoglobin 7.4 after transfusion. Denies any signs or symptoms of GI bleeding with only concerns about dark stool after being started on iron supplementation. Stool testing was positive for occult blood. Denies any history of peptic ulcer disease but does report he believes he has had a remote colonoscopy in the past. Does take aspirin therapy daily. Denying any abdominal pain. Denies any unintentional weight loss. Unclear etiology, may be secondary to GI bleed due to esophagitis, gastritis, AVM, peptic ulcer disease or other source of bleeding. Current Visit: Yes Status: Acute Code(s): D50.9 - IRON DEFICIENCY ANEMIA, UNSPECIFIED SNOMED Code(s): 00632767 (2) Positive occult stool blood test Current Visit: Yes Status: Acute Code(s): R19.5 - OTHER FECAL ABNORMALITIES SNOMED Code(s): 96883889 Plan: Supportive care Clear liquid diet Continue to monitor hemoglobin and hematocrit and transfuse as needed Nothing by mouth after midnight Bowel prep ordered Plan for EGD colonoscopy tomorrow for further evaluation Laboratory evaluation of anemia ordered Thank you for allowing us to participate in the care of the patient we will continue to follow
[2019-07-16 20:55] LABS: Glucose,Whole Blood 202 mg/dL (75-99)
[2019-07-17 06:10] LABS: Glucose,Whole Blood 166 mg/dL (75-99)
[2019-07-17] MEDS: INSULIN ASPART (NovoLOG) 100 UNIT/ML VIAL SQ SCH ×4 (06:29→21:11)
[2019-07-17 07:25] LABS: African American GFR (CKD) >90 (>60 ml/min/1.73 sqM); Anion Gap 10 mmol/L; Blood Urea Nitrogen 16 mg/dL (9-20); Calcium 8.5 mg/dL (8.4-10.2); Carbon Dioxide 24 mmol/L (22-30); Chloride 104 mmol/L (98-107); Glucose 150 mg/dL (74-99); Non-African American GFR(CKD) 85 (>60 ml/min/1.73 sqM); Potassium 3.8 mmol/L (3.5-5.1); Sodium 138 mmol/L (137-145)
[2019-07-17 08:03] LABS: Anisocytosis Moderate; HCT 25.3 % (39.0-53.0); HGB 7.7 gm/dL (13.0-17.5); Hypochromasia Marked; MCH 22.1 pg (25.0-35.0); MCHC 30.5 g/dL (31.0-37.0); MCV 72.5 fL (80.0-100.0); Mean Platelet Volume 7.5; Microcytosis Marked; Platelet Count 293 k/uL (150-450); Poikilocytosis Marked; RBC 3.49 m/uL (4.30-5.90); RDW 21.4 % (11.5-15.5)
[2019-07-17] MEDS ORDERED: PROPOFOL 10 MG/ML 20 ML VIAL IV ONE (08:37)
[2019-07-17] MEDS ORDERED: LIDOCAINE 1% INJ 10MG/ML (20 ML MDV) ONE (08:37)
[2019-07-17] MEDS ORDERED: LACTATED RINGERS 1,000 ML IV ONE (08:41)
[2019-07-17 09:14] LABS: Basophils # (M) 0.04 k/uL (0-0.2); Eosinophils # (M) 0.08 k/uL (0-0.7); Lymphocytes # (M) 0.88 k/uL (1.0-4.8); Monocytes # (M) 0.44 k/uL (0-1.0); Neutrophils # (M) 2.56 k/uL (1.3-7.7); Neutrophils % (M) 64 %; Nucleated Red Blood Cells 0 /100 WBC (0-0); Total Cells Counted 100
--- NOTE | 2019-07-17 09:30 | P.PCN ---
Date of Procedure: 07/17/19 Description of Procedure: Brief history: 84-year-old male with a medical history significant for dyslipidemia, BPH and diabetes mellitus as well as a recent diagnosis of iron deficiency anemia who presented to the hospital with complaints of nausea, weakness and dark stool. On presentation patient found to be severely anemic with a hemoglobin of 5.8, currently is 7.4 after transfusion. The patient reports a recent diagnosis of iron deficiency anemia. He reports being started on oral iron supplementation. After this occurred patient reports nausea and noticing some dark colored bowel movements. He denies any abdominal pain. He does take aspirin daily. Of note history has been taken in conversation with the patient, on review of the medical record and in discussion with the nursing staff as the patient is hard of hearing and can only provide a limited history. Currently WBC 5.8, hemoglobin 7.4, platelet count 312,000, total bilirubin 0.2, alkaline phosphatase 80, AST 22 and ALTs 18. He denies any history of peptic ulcer disease. He does not believe he is had upper endoscopy in the past but does believe he has a remote history of colonoscopy. Procedure performed: Esophagogastroduodenoscopy with biopsy and argon plasma coagulation therapy for treatment of gastric angioectasia Colonoscopy with polypectomy Estimated blood loss: Minimal. Preoperative diagnosis: Iron deficiency, remote history of colonoscopy Anesthesia: MAC Procedure: After informed consent was obtained from the patient was brought into the endoscopy unit and IV sedation was administered by anesthesia under continuous monitoring. Initially upper endoscopy was done. The Olympus GF 190 video endoscope was inserted into the mouth and esophagus intubated without any difficulty and was gradually advanced into the stomach and duodenum and carefully examined. The bulb and second part of the duodenum appeared normal, with biopsies taken. The scope was then withdrawn into the stomach adequately insufflated with air and upon careful examination the antrum and body, cardia and fundus appeared grossly normal except for some mild scattered erythema in the antrum and body biopsies taken. In addition there was a nonbleeding gastric angioectasia noted in the gastric body treated with argon plasma coagulation therapy. The scope was then withdrawn into the esophagus. The GE junction was located at 40 cm to the incisors. It appeared regular with no erythema erosions or ulcerations. Rest of the esophagus appeared normal. Patient tolerated the procedure well. At this time the patient continued to remain sedation. Initial digital rectal examination was normal. Olympus CF 190 video colonoscope was then inserted into the rectum and gradually advanced to the cecum without any difficulty. Careful examination was performed as the scope was gradually being withdrawn. The prep was excellent. The cecum, ascending colon, transverse colon, descending colon, sigmoid colon and rectum appeared normal. A small 5 mm ascending colon polyp removed with cold snare polypectomy a few scattered left colonic diverticula noted. Retroflexion was performed in the rectum and no lesions were noted, low- grade internal hemorrhoids seen. Patient tolerated the procedure well. Impression: 1. 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 Mild gastritis antrum and body biopsies. Duodenal biopsies. 2. Small ascending colon polyp removed with cold snare. Mild left colonic diverticulosis. Low-grade internal hemorrhoids. Recommendations: Findings of this examination were discussed with the patient. Okay for diet. Continue iron supplementation. Await pathology from biopsies and polypectomy. Continue Protonix therapy.
[2019-07-17] MEDS ORDERED: CIPROFLOXACIN HCL 500 MG TAB PO SCH (10:00)
[2019-07-17 10:48] LABS: Reticulocyte % 3.37 % (0.10-1.80)
[2019-07-17 11:10] LABS: Glucose,Whole Blood 168 mg/dL (75-99)
[2019-07-17 11:22] LABS: % Iron Saturation 2.43 (15.00-50.00); Iron 9 ug/dL (65-175); Total Iron Binding Capacity 370 ug/dL (228-460)
[2019-07-17 11:33] LABS: Ferritin 10.6 ng/mL (22.0-322.0); Folate, Serum >24.0 ng/mL
[2019-07-17] MEDS: LIDOCAINE 5% PATCH TOPICAL SCH (12:40)
[2019-07-17] MEDS: PANTOPRAZOLE 40 MG/10 ML VIAL IVP SCH ×2 (12:40→21:11)
[2019-07-17] MEDS: LEVOTHYROXINE 25 MCG TAB PO SCH (12:41)
[2019-07-17] MEDS: ATORVASTATIN 40 MG TAB PO SCH (12:41)
[2019-07-17] MEDS: LINAGLIPTIN 5 MG TABLET PO SCH (12:41)
[2019-07-17] MEDS: TAMSULOSIN 0.4 MG CAP.ER.24H PO SCH (12:41)
--- NOTE | 2019-07-17 13:08 | P.PN ---
Subjective Patient is pleasant 84-year-old female came in today was provided with compensative generalized weakness found to have severe anemia looked pale jack govea was apparently having the nausea vomiting and no hematemesis but had had dark stools. Patient is found to have hemoglobin of 5 patient denied any chest pain fever chills patient has minimal non-productive cough. Patient has significant hearing problems because of which much of the history cannot be obtained 07/16/2019 Patient is awake and alert, extending up with no difficulty, is still nothing by mouth, he has no abdominal pain this morning but he did not have bowel movement, yesterday when he came to the hospital he has black stool but also he was on iron pills. His hemoglobin was low and history of blood transfusion. His hemoglobin today is 7.4 from 5.8. He denies dysuria however her urine culture is pending. BMP looks unremarkable and sugar controlled. Lactic acid back to normal at 1.4, liver enzymes and troponins are not elevated. Also patient report fall prior to coming to the hospital, he has back pain but also this is a chronic. Number x-ray still pending 07/17/2019 Patient awake and alert, sitting in chair with no distress. He is hard hearing. 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 Also he underwent colonoscopy showing polyps status post polypectomy It's okay for him to resume diet, Follow-up biopsy results and continue with Protonix Also lumber x-ray showing degenerative joint disease with multilevel disc space narrowing and spurring. No evidence of acute fracture or dislocation He is hemodynamically stable. Hemoglobin is stable at 7.7. BMP is unremarkable and completely normal. Sugar is controlled. UA is suspicious of infection. Urine culture is growing Pseudomonas. Patient with no fever or leukocytosis. We'll consult infectious disease We will discontinue the normal saline at 75 mL/h. Start ferrous sulfate review of systems CONSTITUTIONAL: No fever, no malaise, no fatigue. HEENT: No recent visual problems or hearing problems. Denied any sore throat. CARDIOVASCULAR: No orthopnea, PND, no palpitations, no syncope. PULMONARY: No shortness of breath, no cough, no hemoptysis. NEUROLOGICAL: No headaches, no weakness, no numbness. HEMATOLOGICAL: Denies any bleeding or petechiae. GENITOURINARY: Denies any burning micturition, frequency, or urgency. MUSCULOSKELETAL/RHEUMATOLOGICAL: Denies any joint pain, swelling, or any muscle pain. ENDOCRINE: Denies any polyuria or polydipsia. Active Medications Generic Name Dose Route Start Last Admin Trade Name Freq PRN Reason Stop Dose Admin Acetaminophen 650 mg 07/15/19 13:49 Tylenol Tab PO Q6HR PRN Fever and/ or Pain Atorvastatin Calcium 40 mg 07/16/19 09:00 07/17/19 12:41 Lipitor PO 40 mg DAILY AMY Administration Sodium Chloride 1,000 mls @ 75 mls/hr 07/15/19 12:45 07/16/19 06:29 Saline 0.9% IV Not Given .[id number] AMY Insulin Aspart 0 unit 07/15/19 12:30 07/17/19 12:42 Novolog SQ 2 unit ACHS AMY Administration Protocol Levothyroxine Sodium 25 mcg 07/16/19 09:00 07/17/19 12:41 Synthroid PO 25 mcg DAILY AMY Administration Lidocaine 1 patch 07/16/19 09:00 07/17/19 12:40 Lidoderm TOPICAL 1 patch DAILY AMY Administration Linagliptin 5 mg 07/16/19 09:00 07/17/19 12:41 Tradjenta PO 5 mg DAILY AMY Administration Naloxone HCl 0.2 mg 07/15/19 10:25 Narcan IV Q2M PRN Opioid Reversal Ondansetron HCl 4 mg 07/16/19 08:44 Zofran IVP Q6HR PRN Nausea And Vomiting Pantoprazole Sodium 40 mg 07/15/19 12:45 07/17/19 12:40 Protonix IVP 40 mg BID AMY Administration Tamsulosin HCl 0.4 mg 07/16/19 09:00 07/17/19 12:41 Flomax PO 0.4 mg DAILY AMY Administration Objective - Vital Signs Vital signs: Vital Signs Temp 98.2 F 07/17/19 08:33 Pulse 86 07/17/19 08:33 Resp 18 07/17/19 08:33 BP 134/72 07/17/19 08:33 Pulse Ox 100 07/17/19 08:33 Intake & Output 07/16/19 07/17/19 07/17/19 18:59 06:59 18:59 Intake Total 1160 200 Output Total 332 Balance 828 200 Weight 77 kg Intake: IV 200 Intake, IV Titration 600 Amount Sodium Chloride 0.9% 1, 600 000 ml @ 75 mls/hr IV . [id number] [facility] Rx#:[id number] Oral 560 Output: Urine 200 Post Void Residual 132 Other: Voiding Method Toilet Toilet Toilet Urinal Urinal Urinal # Voids 1 # Bowel Movements 2 - Exam GENERAL: The patient is alert and oriented x3, not in any acute distress. Well developed, well nourished. HEENT: Pupils are round and equally reacting to light. EOMI. No scleral icterus does have conjunctival pallor. Normocephalic, atraumatic. No pharyngeal erythema. No thyromegaly. CARDIOVASCULAR: S1 and S2 present. No murmurs, rubs, or gallops. PULMONARY: Chest is clear to auscultation, no wheezing or crackles. ABDOMEN: Soft, nontender, nondistended, normoactive bowel sounds. No palpable o rganomegaly. MUSCULOSKELETAL: No joint swelling or deformity. EXTREMITIES: No cyanosis, clubbing, or pedal edema. NEUROLOGICAL: Gross neurological examination did not reveal any focal deficits. SKIN: No rashes. - Labs CBC & Chem 7: 07/17/19 06:37 07/17/19 06:37 Labs: Abnormal Lab Results - Last 24 Hours (Table) 07/16/19 07/16/19 07/17/19 Range/Units 16:16 20:53 06:08 RBC (4.30-5.90) m/uL Hgb (13.0-17.5) gm/dL Hct (39.0-53.0) % MCV (80.0-100.0) fL MCH (25.0-35.0) pg MCHC (31.0-37.0) g/dL RDW (11.5-15.5) % Lymphocytes # (Manual) (1.0-4.8) k/uL Retic Count (0.10-1.80) % Glucose (74-99) mg/dL POC Glucose (mg/dL) 234 H 202 H 166 H (75-99) mg/dL Iron (65-175) ug/dL % Saturation (15.00-50.00) Ferritin (22.0-322.0) ng/mL 07/17/19 07/17/19 07/17/19 Range/Units 06:37 06:37 06:37 RBC 3.49 L (4.30-5.90) m/uL Hgb 7.7 L (13.0-17.5) gm/dL Hct 25.3 L (39.0-53.0) % MCV 72.5 L (80.0-100.0) fL MCH 22.1 L (25.0-35.0) pg MCHC 30.5 L (31.0-37.0) g/dL RDW 21.4 H (11.5-15.5) % Lymphocytes # (Manual) 0.88 L (1.0-4.8) k/uL Retic Count 3.37 H (0.10-1.80) % Glucose 150 H (74-99) mg/dL POC Glucose (mg/dL) (75-99) mg/dL Iron 9 L (65-175) ug/dL % Saturation 2.43 L (15.00-50.00) Ferritin 10.6 L (22.0-322.0) ng/mL 07/17/19 Range/Units 11:09 RBC (4.30-5.90) m/uL Hgb (13.0-17.5) gm/dL Hct (39.0-53.0) % MCV (80.0-100.0) fL MCH (25.0-35.0) pg MCHC (31.0-37.0) g/dL RDW (11.5-15.5) % Lymphocytes # (Manual) (1.0-4.8) k/uL Retic Count (0.10-1.80) % Glucose (74-99) mg/dL POC Glucose (mg/dL) 168 H (75-99) mg/dL Iron (65-175) ug/dL % Saturation (15.00-50.00) Ferritin (22.0-322.0) ng/mL Microbiology - Last 24 Hours (Table) 07/15/19 10:00 Urine Culture - Final Urine,Voided Pseudomonas aeruginosa Assessment and Plan Assessment: -acute upper GI bleed and acute blood loss anemia from that patient status post 3 units of blood transfusion, continue with Protonix, GI consult. 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 -Possible acute urinary tract infection with Pseudomonas: ID consult -Hyponatremia hypovolemic hyponatremia from diuretics and GI bleed patient will be started on IV fluids at 100 mL per hour -Lactic acidosis secondary to severe anemia and decreased organ perfusion, came back to normal -Asymptomatic bacteriuria will not require any antibiotics -Type 2 diabetes mellitus patient will be continue the rest of the oral hypoglyc emic agents were discontinued and patient will be started on sliding scale insulin -Hypertension with concerns of hypotension from GI bleed aren't hold off on losartan temporary -Hypothyroidism continue with levothyroxine -Hyperlipidemia continue with the Lipitor DVT prophylaxis SCDs, no heparin in view of possible GI bleed
[2019-07-17] MEDS ORDERED: LACTATED RINGERS 1,000 ML IV SCH (13:51)
[2019-07-17 15:28] LABS: Magnesium 1.9 mg/dL (1.6-2.3); Potassium 3.8 mmol/L (3.5-5.1)
[2019-07-17 16:11] LABS: Glucose,Whole Blood 251 mg/dL (75-99)
[2019-07-17] MEDS ORDERED: POTASSIUM CHLORIDE ER 20 MEQ TAB.ER PO STA (16:34)
[2019-07-17] MEDS ORDERED: MAGNESIUM SULFATE-D5W PMX 1 GM in DEXTROSE/WATER 1 100ML.BAG IVPB ONE (17:00)
[2019-07-17] MEDS ORDERED: FERROUS SULFATE 325 MG TAB PO SCH (17:30)
[2019-07-17] MEDS: SODIUM CHLORIDE 0.9% 1,000 ML IV SCH ×2 (18:22→18:23)
--- NOTE | 2019-07-17 18:37 | CONS ---
CONSULTATION DATE OF SERVICE: 07/17/2019 REASON FOR CONSULTATION: Pseudomonas urinary tract infection. HISTORY OF PRESENT ILLNESS: The patient is an 84-year-old male presenting to the ER at [facility] on 07/15/2019 with chief complaints of weakness which has been going on for about a week before presentation to hospital. The patient did have some nausea and vomiting for about a week. Apparently the patient did have some black tarry stool, which he was attributing to his iron tablet. No fever at home. No chest pain, shortness of breath or cough. No nausea, no vomiting, or any other symptoms. With these symptoms, the patient was evaluated by the ER physician on arrival at the ER. The patient has been afebrile. Patient did have a normal white count. Hemoglobin was 5.8. GI has been consulted. The patient did have a positive UA with large leukocyte esterases, 12 WBCs. [place] PCR was negative. Chest x-ray was negative for any acute cardiopulmonary disease. The patient did have an EGD and colonoscopy performed this morning for his GI bleed. The patient was noted to have non-bleeding gastric angioectasia and small ascending colon polyp. The patient's urine culture has been finalized with Pseudomonas aeruginosa, 10,000 to 49,000 colonies. I was asked to see the patient with concern for possible UTI and need for antibiotic therapy. The patient at this point denies having any burning or frequency of urine and denies having difficult urination. No flank pain. REVIEW OF SYSTEMS: Positive points have been mentioned in HPI. Rest of the systems are negative. PAST MEDICAL HISTORY: Diabetes mellitus, syncope, history of prostate disorder, kidney stone, history of GI bleed. PAST SURGICAL HISTORY: Lithotripsies. SOCIAL HISTORY: Denies smoking, drinking or drug use. FAMILY HISTORY: Mother with history of CVA. ALLERGIES: NO KNOWN DRUG ALLERGIES. MEDICATIONS: Current medications include Tylenol, Lipitor, iron sulfate, NovoLog, lactated Ringer, Synthroid, Lidoderm, Tradjenta, Narcan, Zofran, Protonix and Flomax. PHYSICAL EXAMINATION: Blood pressure 140/81 with a pulse of 82, temperature 97.5. He is 98% on room air. General description is an elderly male up in the chair in no distress. No tachypnea or accessory muscle of respiration use. HEENT examination shows pallor. No scleral icterus. Oral mucosa membrane is dry. NECK: Trachea is central. No thyromegaly. LUNGS: Unlabored breathing. Clear to auscultation anteriorly. No wheeze or crackle. HEART: S1, S2. Regular rate and rhythm. ABDOMEN: Soft. No tenderness. No guarding or rigidity. EXTREMITIES: No edema of the feet. SKIN EXAMINATION: No rash or mass palpable. Neurologically the patient is awake and alert, oriented x3. Mood and affect normal. LABS: Hemoglobin is 7.7, white count 4.0. BUN of 16, creatinine 0.77. Electrolytes have been normal. Urine is Pseudomonas aeruginosa, only 10,000 to 49,000 colonies. DIAGNOSTIC IMPRESSION AND PLAN: Patient presented to hospital with a gastrointestinal bleed in this patient, status post EGD and colonoscopy. The patient was anemic on presentation and main symptoms were shortness of breath and weakness with positive UA; however, the patient did not have any urinary symptoms. More likely urine culture had presenting either contamination or colonization. PLAN: 1. No need for any systemic antibiotic therapy for positive urine culture. 2. Will monitor the patient closely off antibiotic therapy. If he develops any fever or urinary symptoms, will re-culture before starting him on antibiotic therapy. Thank you for this consultation. Will follow this patient along with you. MMODL / IJN: [id number] /
[2019-07-17] MEDS ORDERED: SODIUM FERRIC GLUCONAT-SUCROSE 125 MG in SODIUM CHLORIDE 0.9% 100 ML IVPB SCH (19:00)
[2019-07-17 20:49] LABS: Glucose,Whole Blood 225 mg/dL (75-99)
[2019-07-18] MEDS: INSULIN ASPART (NovoLOG) 100 UNIT/ML VIAL SQ SCH ×2 (06:02→12:13)
[2019-07-18 06:07] LABS: Glucose,Whole Blood 203 mg/dL (75-99)
[2019-07-18 06:34] LABS: Anisocytosis Moderate; Basophils % (A) 0 %; Eosinophils # (A) 0.1 k/uL (0-0.7); Eosinophils % (A) 1 %; HCT 24.4 % (39.0-53.0); HGB 7.1 gm/dL (13.0-17.5); Hypochromasia Marked; Lymphocytes # (A) 0.9 k/uL (1.0-4.8); Lymphocytes % (A) 17 %; MCH 21.6 pg (25.0-35.0); MCHC 29.2 g/dL (31.0-37.0); Mean Platelet Volume 7.5; Microcytosis Moderate; Monocytes # (A) 0.4 k/uL (0-1.0); Monocytes % (A) 7 %; Neutrophils % (A) 73 %; Platelet Count 347 k/uL (150-450); Poikilocytosis Marked; RDW 20.8 % (11.5-15.5); WBC 5.4 k/uL (3.8-10.6)
[2019-07-18] MEDS: LINAGLIPTIN 5 MG TABLET PO SCH (08:27)
[2019-07-18] MEDS: ATORVASTATIN 40 MG TAB PO SCH (08:27)
[2019-07-18] MEDS: PANTOPRAZOLE 40 MG/10 ML VIAL IVP SCH (08:27)
[2019-07-18] MEDS: LEVOTHYROXINE 25 MCG TAB PO SCH (08:28)
[2019-07-18] MEDS: TAMSULOSIN 0.4 MG CAP.ER.24H PO SCH (08:28)
[2019-07-18] MEDS: LIDOCAINE 5% PATCH TOPICAL SCH (08:28)
[2019-07-18 08:43] VITALS: TEMP 98.2
[2019-07-18] MEDS ORDERED: glipiZIDE 5 MG TAB PO SCH (09:00)
[2019-07-18] MEDS ORDERED: LOSARTAN 50 MG TAB PO SCH (09:00)
[2019-07-18] MEDS ORDERED: METOPROLOL TARTRATE 25 MG TAB PO SCH (10:30)
[2019-07-18 10:59] LABS: African American GFR (CKD) >90 (>60 ml/min/1.73 sqM); Anion Gap 7 mmol/L; Blood Urea Nitrogen 14 mg/dL (9-20); Calcium 8.5 mg/dL (8.4-10.2); Carbon Dioxide 23 mmol/L (22-30); Chloride 104 mmol/L (98-107); Glucose 198 mg/dL (74-99); Non-African American GFR(CKD) 87 (>60 ml/min/1.73 sqM); Potassium 4.1 mmol/L (3.5-5.1); Sodium 134 mmol/L (137-145)
[2019-07-18 11:21] LABS: Glucose,Whole Blood 226 mg/dL (75-99)
[2019-07-18 11:30] VITALS: RESP 18
[2019-07-18 11:48] VITALS: BP 123/72; PULSE 53
--- NOTE | 2019-07-18 11:48 | CONS ---
CONSULTATION Mr. Medrano is an 84-year-old male with known history of hypertension, hyperlipidemia, diabetes mellitus, who presented with severe weakness and was noted to have severe anemia and evidence of GI bleeding. He underwent endoscopy by Dr. To and was found to have nonbleeding gastric angiectasia with mild gastritis. Cardiology consultation was requested because of an episode of nonsustained ventricular tachycardia. Patient denies any prior history of ventricle ectopic activity or history of cardiac disease. He denies any dizziness or palpitation. He is not aware of the arrhythmia. He is, according to him, reasonably active physically without any significant symptoms. He denies any chest pain or dyspnea. No peripheral edema, no PND, nor orthopnea. His coronary risk factors are remarkable for hypertension, hyperlipidemia, and diabetes. He is a non smoker for a long time. MEDICATION: Include glipizide 5 mg twice a day. He was on aspirin on presentation, Lipitor 40 mg daily, losartan 100 mg daily, hydrochlorothiazide 25 mg daily, Januvia, levothyroxine, iron, vitamin C and Flomax. REVIEW OF SYSTEMS: RESPIRATORY SYSTEM: He denies any history of documented asthma, emphysema, bronchitis. GI SYSTEM: He had the GI bleeding as noted with iron deficiency anemia. SYSTEM: No dysuria or hematuria. NERVOUS SYSTEM: No history of stroke or seizure. PHYSICAL EXAMINATION: He is an 84-year-old male, alert, oriented, in no apparent distress. Hard of hearing. Blood pressure 137/70 with a heart rate in the 90s. HEAD: Normocephalic. EYES: Sclerae nonicteric. NECK: Good upstroke, no bruit. No jugular venous distention. LUNGS: Clear to auscultation. HEART: Regular rate and rhythm, S1, S2. No S3 with a systolic murmur heard at the base. No diastolic murmur, no rub. ABDOMEN: Soft, nontender. Positive bowel sounds, no organomegaly. EXTREMITIES: No edema, intact pulses. LAB DATA: Revealed a hemoglobin of 5.8. On admission, his troponin was less than 0.012. His lactic acid was elevated. His hemoglobin is 7.1 at this time. Magnesium is 1.9. His EKG revealed a sinus mechanism with normal intervals, left axis deviation. His rhythm strip revealed an episode of nonsustained ventricular tachycardia that occurred yesterday. IMPRESSION: 1. Severe gastrointestinal bleeding with severe anemia, stabilizing. 2. Episode of nonsustained ventricular tachycardia, asymptomatic. No evidence to suggest acute ischemia as the etiology. There is no evaluation of his systolic function. 3. History of hypertension. 4. Hyperlipidemia. 5. Diabetes mellitus. RECOMMENDATION: I will add to his regimen a beta joy, check his renal function and I will obtain an echocardiogram with Doppler. If there is no evidence of significant segmental wall motion abnormality, then no further cardiac workup will be needed at this time. He will be followed as an outpatient. Thank you for this consult. Will follow with you. GEORGES / IJN: [id number] /
--- NOTE | 2019-07-18 11:51 | ECHOF ---
Referral Reason:vt MEASUREMENTS -------- HEIGHT: 182.9 cm WEIGHT: 79.8 kg BP: 137/70 RVIDd: 3.3 cm (< 3.3) IVSd: 1.7 cm (0.6 - 1.1) LVIDd: 4.7 cm (3.9 - 5.3) LVPWd: 1.7 cm (0.6 - 1.1) IVSs: 2.4 cm LVIDs: 2.7 cm LVPWs: 2.2 cm LAESV Index (A-L): 41.61 ml/m Ao Diam: 3.8 cm (2.0 - 3.7) AV Cusp: 2.2 cm (1.5 - 2.6) MV EXCURSION: 13.883 mm (> 18.000) MV EF SLOPE: 93 mm/s (70 - 150) EPSS: 0.8 cm MV E Evaristo: 0.87 m/s MV DecT: 266 ms MV A Evaristo: 1.42 m/s MV E/A Ratio: 0.61 RAP: 15.00 mmHg RVSP: 37.47 mmHg FINDINGS -------- Sinus rhythm. This was a technically adequate study. The left ventricular size is normal. There is moderate concentric left ventricular hypertrophy. O verall left ventricular systolic function is normal with, an EF between 60 - 65 %. The diastolic fi lling pattern is normal for the age of the patient 12.95. The right ventricle is normal in size. LA is severely dilated >40 ml/m2 The right atrium is mildly enlarged. Interatrial and interventricular septum intact. There is mild aortic valve sclerosis. There is no evidence of aortic regurgitation. There is no e vidence of aortic stenosis. Msluorsv-tt-lmarry mitral regurgitation is present. Mild tricuspid regurgitation present. There is mild pulmonary hypertension. The right ventricular systolic pressure, as measured by Doppler, is 37.47mmHg. There is no pulmonic regurgitation present. The aortic root is mildy dilated. The inferior vena cava is mildly dilated. There is no pericardial effusion. CONCLUSIONS -------- 1. Sinus rhythm. 2. This was a technically adequate study. 3. The left ventricular size is normal. 4. There is moderate concentric left ventricular hypertrophy. 5. Overall left ventricular systolic function is normal with, an EF between 60 - 65 %. 6. The diastolic filling pattern is normal for the age of the patient 12.95 7. The right ventricle is normal in size. 8. LA is severely dilated >40 ml/m2 9. The right atrium is mildly enlarged. 10. Interatrial and interventricular septum intact. 11. There is mild aortic valve sclerosis. 12. There is no evidence of aortic regurgitation. 13. There is no evidence of aortic stenosis. 14. Isvpecra-lv-wkoeic mitral regurgitation is present. 15. Mild tricuspid regurgitation present. 16. There is mild pulmonary hypertension. 17. The right ventricular systolic pressure, as measured by Doppler, is 37.47mmHg. 18. There is no pulmonic regurgitation present. 19. The aortic root is mildy dilated. 20. The inferior vena cava is mildly dilated. 21. There is no pericardial effusion. HEALTH POLICY ANALYST: Anitra Medina RDCS
--- NOTE | 2019-07-18 13:21 | P.DS ---
Providers Date of admission: 07/15/19 10:43 Attending physician: Tamar Murphy Consults: 07/15/19 10:28 Consult Physician Routine Consulting Provider: Alberto Munoz Consult Reason/Comments: presumed GI bleed Do you want consulting provider notified?: Yes 07/17/19 09:50 Consult Physician Routine Consulting Provider: Mary Lopez Consult Reason/Comments: pseudomonas in urine culture, no fever or leukocytosis Do you want consulting provider notified?: Yes 07/17/19 14:37 Consult Physician Urgent Consulting Provider: Luanne Walsh Consult Reason/Comments: non-sustained rounds of VTAC Do you want consulting provider notified?: Yes Primary care physician: Dmitry [facility] Course: Diagnoses: -acute upper GI bleed and acute blood loss anemia ,status post 3 units of blood transfusion 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 No need for antibiotics per ID team -Moderate to severe mitral regurgitation -Nonsustained V. tach -Hyponatremia hypovolemic resolved -Lactic acidosis, came back to normal -Type 2 diabetes mellitus -Hypertension with concerns of hypotension from GI bleed aren't hold off on losartan temporary -Hypothyroidism -Hyperlipidemia Hospital course: Patient is pleasant 84-year-old male with multiple medical problems presents with weakness and low hemoglobin at 5.8, status post blood transfusion and hemoglobin improved prior to discharge was 7.7. GI team evaluated the patient, he underwent EGD: Found to have gastric angioectasia treated by argon plasma coagulation therapy. Post procedure it looks like bleeding stopped and hemoglobin is stable and patient's symptoms improved. Patient was started also on iron pills. Patient also was instructed to follow up with GI team for biopsy results, risks including but not limited to cancer explained and he verbalized understanding and acceptance. While colonoscopy: Small ascending colon polyp removed with cold snare. Patient remained stable and no other new symptoms, GI team cleared him for discharge Patient hospital course was complicated with a symptomatic nonsustained V. tach, patient has been evaluated by membership solicitor, metoprolol admitted and echocardiogram checked: EF 60-65%, with moderate LVH, on moderate to severe mitral regurgitation ID team evaluated the patient for Pseudomonas in the urine culture however no UTIs signs and symptoms, no fever, no WBC. So patient does not need antibiotics Problems and management plan were discussed with the patient and he verbalized understanding and acceptance Patient was found stable and can be discharged home however he needs follow-up as an outpatient. Patient was instructed to follow up with PCP Dr. Roach within one week and patient agrees. Also patient instructed to follow up with Dr. Markham from GI in 2 weeks for biopsy results, risks including but not limited to cancer explained, patient verbalized understanding and acceptance. Patient agrees with the appointments made for him with Dr. Markham. Also patient was instructed to follow up with Dr. Santos membership solicitor in 2 weeks an increase Gen: patient is a AAOx3, no distress CVS: S1-S2, RRR, no murmur Lungs: B/L CTA, no wheezing Abdomen: soft, no distention, no tenderness, positive bowel sounds Extremity: no leg edema or induration Time spent more than 35 minutes Patient Condition at Discharge: Fair Plan - Discharge Summary Discharge Rx Participant: No New Discharge Prescriptions: No Action glipiZIDE [Glucotrol] 5 mg PO BID Atorvastatin [Lipitor] 40 mg PO DAILY Aspirin 81 mg PO DAILY Pioglitazone HCl/Metformin HCl [Pioglitazone-Metformin 15] 1 each PO Q12H Losartan Potassium 100 mg PO DAILY Tamsulosin HCl [Flomax] 0.4 mg PO DAILY Ferrous Sulfate [Iron] 325 mg PO BID Ascorbic Acid [Vitamin C] 250 mg PO BID Lidocaine 5% Patch [Lidoderm] 1 patch TOPICAL DAILY Levothyroxine Sodium 25 mcg PO DAILY sitaGLIPtin [Januvia] 100 mg PO DAILY Hydrochlorothiazide 25 mg PO DAILY Discharge Medication List Aspirin 81 mg PO DAILY 07/24/16 [History] Atorvastatin [Lipitor] 40 mg PO DAILY 07/24/16 [History] Losartan Potassium 100 mg PO DAILY 07/24/16 [History] Pioglitazone HCl/Metformin HCl [Pioglitazone-Metformin 15] 1 each PO Q12H 07/24/16 [History] glipiZIDE [Glucotrol] 5 mg PO BID 07/24/16 [History] Ascorbic Acid [Vitamin C] 250 mg PO BID 07/15/19 [History] Ferrous Sulfate [Iron] 325 mg PO BID 07/15/19 [History] Hydrochlorothiazide 25 mg PO DAILY 07/15/19 [History] Levothyroxine Sodium 25 mcg PO DAILY 07/15/19 [History] Lidocaine 5% Patch [Lidoderm] 1 patch TOPICAL DAILY 07/15/19 [History] Tamsulosin HCl [Flomax] 0.4 mg PO DAILY 07/15/19 [History] sitaGLIPtin [Januvia] 100 mg PO DAILY 07/15/19 [History] Follow up Appointment(s)/Referral(s): Dmitry Roach III, MD [Primary Care Provider] - 1-2 days Alberto Munoz MD [STAFF PHYSICIAN] - 08/07/19 2:30 pm (Follow-up biopsy results Go to office 15 minutes prior to appointment. Bring insurance card and picture ID.) Activity/Diet/Wound Care/Special Instructions: Low carbohydrate diet Activity is limited till you see your doctor Discharge Disposition: HOME SELF-CARE
--- NOTE | 2019-07-18 15:45 | PN ---
PROGRESS NOTE DATE OF SERVICE: 07/18/2019 REASON FOR FOLLOWUP: Positive urine culture with Pseudomonas. INTERVAL HISTORY: The patient was seen on rounds early this afternoon. The patient has been afebrile, has been feeling better, breathing comfortably. Denies having any chest pain or cough. No abdominal pain and no urinary symptoms. No burning or frequency. PHYSICAL EXAMINATION: Blood pressure 123/72 with a pulse of 53, temperature 98.2. He is 93% on room air. General description is an elderly male lying in bed in no distress. RESPIRATORY SYSTEM: Unlabored breathing. Clear to auscultation anteriorly. HEART: S1, S2. Regular rate and rhythm. ABDOMEN: Soft. No tenderness. LABS: Hemoglobin 7.1, white count 5.4, BUN of 14, creatinine 0.72. DIAGNOSTIC IMPRESSION AND PLAN: Patient with a positive urine culture with Pseudomonas, low colony count, in this patient who currently does not have any symptoms, possibly representing colonization or contamination. No need for any systemic antibiotic therapy on discharge. MMODL / IJN: [id number] /
--- NOTE | 2019-07-18 19:37 | P.PN ---
Subjective Progress Note Date: 07/18/19 Principal diagnosis: Iron deficiency anemia, gastric angioectasia Patient seen lying in bed denying any signs or symptoms of GI bleeding. Tolerating his diet. No abdominal pain. Objective - Vital Signs Vital signs: Vital Signs Temp 98 F 07/18/19 04:00 Pulse 97 07/18/19 04:00 Resp 16 07/18/19 04:00 BP 139/76 07/18/19 04:00 Pulse Ox 96 07/18/19 04:00 Intake & Output 07/17/19 07/18/19 07/18/19 18:59 06:59 18:59 Intake Total 800 Output Total 300 Balance 500 Weight 80.1 kg Intake: IV 200 Oral 600 Output: Urine 300 Other: Voiding Method Toilet Urinal # Voids 1 2 1 # Bowel Movements 1 - Exam On physical examination, patient appears comfortable in no apparent distress. HEAD: Normocephalic, atraumatic. EYES: No scleral icterus. No conjunctival injection. MOUTH: No lesions, tongue midline. NECK: Trachea midline, no gross abnormalities. ABDOMEN: Soft. Bowel sounds are positive. No organomegaly. No guarding or rigidity. EXTREMITIES: No pedal edema. SKIN: No rashes, no jaundice. NEUROLOGIC: Alert and oriented x3. No focal deficits. - Labs CBC & Chem 7: 07/18/19 05:34 07/18/19 05:34 Labs: Abnormal Lab Results - Last 24 Hours (Table) 07/17/19 07/17/19 07/17/19 Range/Units 06:37 06:37 06:37 RBC (4.30-5.90) m/uL Hgb (13.0-17.5) gm/dL Hct (39.0-53.0) % MCV (80.0-100.0) fL MCH (25.0-35.0) pg MCHC (31.0-37.0) g/dL RDW (11.5-15.5) % Lymphocytes # (1.0-4.8) k/uL Lymphocytes # (Manual) 0.88 L (1.0-4.8) k/uL Retic Count 3.37 H (0.10-1.80) % POC Glucose (mg/dL) (75-99) mg/dL Iron 9 L (65-175) ug/dL % Saturation 2.43 L (15.00-50.00) Ferritin 10.6 L (22.0-322.0) ng/mL 07/17/19 07/17/19 07/17/19 Range/Units 11:09 16:09 20:48 RBC (4.30-5.90) m/uL Hgb (13.0-17.5) gm/dL Hct (39.0-53.0) % MCV (80.0-100.0) fL MCH (25.0-35.0) pg MCHC (31.0-37.0) g/dL RDW (11.5-15.5) % Lymphocytes # (1.0-4.8) k/uL Lymphocytes # (Manual) (1.0-4.8) k/uL Retic Count (0.10-1.80) % POC Glucose (mg/dL) 168 H 251 H 225 H (75-99) mg/dL Iron (65-175) ug/dL % Saturation (15.00-50.00) Ferritin (22.0-322.0) ng/mL 07/18/19 07/18/19 Range/Units 05:34 05:57 RBC 3.30 L (4.30-5.90) m/uL Hgb 7.1 L (13.0-17.5) gm/dL Hct 24.4 L (39.0-53.0) % MCV 74.0 L (80.0-100.0) fL MCH 21.6 L (25.0-35.0) pg MCHC 29.2 L (31.0-37.0) g/dL RDW 20.8 H (11.5-15.5) % Lymphocytes # 0.9 L (1.0-4.8) k/uL Lymphocytes # (Manual) (1.0-4.8) k/uL Retic Count (0.10-1.80) % POC Glucose (mg/dL) 203 H (75-99) mg/dL Iron (65-175) ug/dL % Saturation (15.00-50.00) Ferritin (22.0-322.0) ng/mL Microbiology - Last 24 Hours (Table) 07/15/19 10:00 Urine Culture - Final Urine,Voided Pseudomonas aeruginosa Assessment and Plan (1) Iron deficiency anemia Narrative/Plan: 84-year-old male with a recent diagnosis of iron deficiency anemia presenting with weakness and nausea as well as dark-colored stool. Stool became dark after starting iron supplementation in the outpatient setting. Hemoglobin 5.8 on presentation with microcytic indices. Currently hemoglobin 7.1 after transfusion. Denies any signs or symptoms of GI bleeding with only concerns ab out dark stool after being started on iron supplementation. Stool testing was positive for occult blood. Denies any history of peptic ulcer disease but does report he believes he has had a remote colonoscopy in the past. Does take aspirin therapy daily. Patient was taken for EGD with findings of a nonbleeding gastric angiectasia treated with argon plasma coagulation therapy as well as some mild gastritis, and colonoscopy significant for diverticulosis and polypectomy. Status: Acute Code(s): D50.9 - IRON DEFICIENCY ANEMIA, UNSPECIFIED SNOMED Code(s): 02811621 (2) Positive occult stool blood test Status: Acute Code(s): R19.5 - OTHER FECAL ABNORMALITIES SNOMED Code(s): 14992321 Plan: Supportive care Okay for diet as tolerated Patient should continue oral iron supplementation after discharge Patient should continue Protonix daily Continue to monitor hemoglobin and hematocrit and transfuse as needed Thank you for allowing us to participate in the care of the patient we will continue to follow
--- NOTE | 2019-07-22 09:40 | CDI ---
Documentation Clarification Form Date: 07/22/[id number] CDS: Alexandra Spence RN, CCDS Admit Date: 07/15/2019 1043 Patient Name: Cristofer Medrano ATTENTION: The Clinical Documentation Specialists (CDI) and [facility] Coding Staff appreciate your assistance in clarifying documentation. Please respond to the clarification below the line at the bottom and electronically sign. The CDI & [facility] Coding staff will review the response and follow-up if needed. Please note: Queries are made part of the Legal Health Record. If you have any questions, please contact the author of this message via ITS. Dr. Reynoso Coronavirus (PCR) testing was performed on this patient. All patients with Coronavirus testing require documentation of results/clinical significance. Patient history/risk factors: DM, iron deficiency anemia, hypothyroidism Clinical Indicators: Patient present with c/o nausea, vomiting, weakness 07/15/2019 CXR: "Chronic changes without evidence for acute pulmonary disease." Labs: 07/16- ferritin 10.6 07/14 + occult stool ABGs: not done 07/15/2019 Viral Panel: Coronavirus (PCR) Negative 07/15/2019 0911 Admission Vital Signs: Temp 97.8, HR 97, RR 18, B/P 98/63, Spo2 98% RA Treatment: 07/16 Consult: ID: "The patient was anemic on presentation and main symptoms were shortness of breath and weakness with positive UA; however, the patient did not have any urinary symptoms. More likely urine culture had presenting either contamination or colonization." In order to capture the severity of condition, please clarify if the above treatment/clinical indicators signify regarding lab result: COVID-19 ruled out COVID-19 false negative test result, treated for Covid-19 based on clinical indicators (please specify clinical indicators) Other, please specify Unable to determine Please continue to document in your progress notes and discharge summary in order to capture severity of illness and risk of mortality. Include clinical findings that support your diagnosis. pt did now have symptoms of covid, I did not rule out or in covid19 MTDD
== END 2019-07-18 14:57 | disposition home or self-care (01) | DRG 378 ==
LOC: EC 09:03 → 3SCARD 10:43
PROVIDERS: ADMIT Internal Medicine; ATTEND Internal Medicine
PROC: 0DB78ZX Excision of Stomach, Pylorus, Via Natural or Artificial Opening Endoscopic, Diagnostic (ICD-10-PCS; principal; 2019-07-17 07:50)
PROC: 30233N1 Transfusion of Nonautologous Red Blood Cells into Peripheral Vein, Percutaneous Approach (ICD-10-PCS; principal; 2019-07-17 07:50)
PROC: 0DBK8ZX Excision of Ascending Colon, Via Natural or Artificial Opening Endoscopic, Diagnostic (ICD-10-PCS; principal; 2019-07-17 07:50)
PROC: 0W3P8ZZ Control Bleeding in Gastrointestinal Tract, Via Natural or Artificial Opening Endoscopic (ICD-10-PCS; principal; 2019-07-17 07:50)
PROC: 0DB98ZX Excision of Duodenum, Via Natural or Artificial Opening Endoscopic, Diagnostic (ICD-10-PCS; principal; 2019-07-17 07:50)
DX: K31.811 Angiodysplasia of stomach and duodenum with bleeding (principal); E87.1 Hypo-osmolality and hyponatremia; E87.2 Acidosis; D62 Acute posthemorrhagic anemia; I47.2 Ventricular tachycardia; K29.71 Gastritis, unspecified, with bleeding; K57.30 Diverticulosis of large intestine without perforation or abscess without bleeding; N40.0 Benign prostatic hyperplasia without lower urinary tract symptoms; E78.5 Hyperlipidemia, unspecified; K63.5 Polyp of colon; I10 Essential (primary) hypertension; H91.90 Unspecified hearing loss, unspecified ear; K64.8 Other hemorrhoids; Z20.828 Contact with and (suspected) exposure to other viral communicable diseases; D50.9 Iron deficiency anemia, unspecified; I34.0 Nonrheumatic mitral (valve) insufficiency; E86.1 Hypovolemia; E11.65 Type 2 diabetes mellitus with hyperglycemia; E03.9 Hypothyroidism, unspecified; Z79.899 Other long term (current) drug therapy; Z87.442 Personal history of urinary calculi; Z79.890 Hormone replacement therapy; Z79.84 Long term (current) use of oral hypoglycemic drugs; Z79.82 Long term (current) use of aspirin; Z82.3 Family history of stroke
CPT/HCPCS: 36415; 43239; 43270; 45385; 71045; 72100; 80048; 80053; 81001; 82272; 82607; 82728; 82746; 83540; 83550; 83605; 83735; 84132; 84484; 85025; 85027; 85045; 85610; 85730; 86850; 86900; 86901; 86920; 87077; 87086; 87186; 87635; 88305; 93005; 93306; 96361; 96374; 99285

== ENCOUNTER 2020-01-31 05:41 | Day surgery (SDC) | payer OTHER, MEDICARE ==
[2020-01-30 09:17] VITALS: BMI 24.1
--- NOTE | 2020-01-30 18:09 | P.GSHP ---
History of Present Illness H&P Date: 01/30/20 Chief Complaint: sebaceous cyst, hernia Patient seen in the office with complaints of a bulge in the posterior aspect of his neck. Increasing in size and having some pain there. Thinks its giving him some headaches. Hurts when it is pressed upon. He was scheduled for surgical excision of this cyst however the patient then was noted to have a moderate- sized bulge with pain in the right groin. He was seen back in the office. We canceled his elective excision of his sebaceous cyst. Options were reviewed. We decided to proceed with repair right inguinal hernia and excision sebaceous cyst simultaneously. Patient obtained cardiac clearance and medical clearance for the procedure. Otherwise doing well. Past Medical History Past Medical History: Diabetes Mellitus, Hearing Disorder / Deafness, Hyperlipidemia, Prostate Disorder, Syncope Additional Past Medical History / Comment(s): kidney stones, type II diabetes, GI bleed on 07/15/19, cyst neck area, hernia History of Any Multi-Drug Resistant Organisms: None Reported Past Surgical History: No Surgical Hx Reported Additional Past Surgical History / Comment(s): Kidney stone lithotripsy. Past Anesthesia/Blood Transfusion Reactions: No Reported Reaction Smoking Status: Never smoker - Past Family History Mother Family Medical History: CVA/TIA Medications and Allergies Home Medications Medication Instructions Recorded Confirmed Type Atorvastatin [Lipitor] 40 mg PO DAILY 07/24/16 01/30/20 History Losartan Potassium 100 mg PO DAILY 07/24/16 01/30/20 History Pioglitazone HCl/Metformin HCl 1 each PO Q12H 07/24/16 01/30/20 History [Pioglitazone-Metformin 15850] glipiZIDE [Glucotrol] 5 mg PO BID 07/24/16 01/30/20 History Ascorbic Acid [Vitamin C] 250 mg PO BID 07/15/19 01/30/20 History Ferrous Sulfate [Iron] 325 mg PO BID 07/15/19 01/30/20 History Levothyroxine Sodium 25 mcg PO DAILY 07/15/19 01/30/20 History Lidocaine 5% Patch [Lidoderm 5% 1 patch TOPICAL DAILY 07/15/19 01/30/20 History Patch] Tamsulosin HCl [Flomax] 0.4 mg PO DAILY 07/15/19 01/30/20 History hydroCHLOROthiazide 25 mg PO DAILY 07/15/19 01/30/20 History sitaGLIPtin [Januvia] 100 mg PO DAILY 07/15/19 01/30/20 History Multivitamins, Thera [Multivitamin 1 tab PO DAILY 01/30/20 01/30/20 History (formulary)] Allergies Allergy/AdvReac Type Severity Reaction Status Date / Time No Known Allergies Allergy Verified 01/30/20 09:08 Surgical - Exam Physical exam: General: Well-developed, well-nourished HEENT: Normocephalic, sclerae nonicteric, large sebaceous cyst posterior neck Abdomen: Nontender, nondistended, reducible right inguinal hernia Extremities: No edema Neuro: Alert and oriented Assessment and Plan (1) Right inguinal hernia Narrative/Plan: 84-year-old male with symptomatic posterior neck sebaceous cyst and large right inguinal hernia. We'll proceed with operative repair of the right hernia with mesh and excision sebaceous cyst at this time. Risks of bleeding, infection, recurrence, bladder and bowel injury, numbness, nerve injury, anesthesia related complications were discussed with the patient. The patient understands and wishes to proceed. Status: Acute Code(s): K40.90 - UNIL INGUINAL HERNIA, W/O OBST OR GANGR, NOT SPCF RECUR SNOMED Code(s): 756386076
[~2020-01-31 05:41] MED LIST: ACETAMINOPHEN TAB 500 MG TAB PO ONE
[2020-01-31] MEDS ORDERED: LACTATED RINGERS 1,000 ML IV SCH (05:48)
[2020-01-31] MEDS ORDERED: HYDROmorphone 0.5 MG/0.5 ML SYRINGE IVP PRN (05:48)
[2020-01-31] MEDS ORDERED: ONDANSETRON 4 MG/2 ML VIAL IVP ONE (05:48)
[2020-01-31] MEDS ORDERED: DEXAMETHASONE SOD PHOSPHATE 10 MG/ML 1 ML VIAL IV ONE (05:48)
[2020-01-31] MEDS ORDERED: HEPARIN SODIUM,PORCINE 5,000 UNIT/ML 1 ML VIAL SQ ONE (06:00)
[2020-01-31 06:37] LABS: Glucose,Whole Blood 127 mg/dL (75-99)
[2020-01-31] MEDS ORDERED: LIDOCAINE 1% (10MG/ML) FOR IV START INTRADERMA ONE (06:42)
[2020-01-31] MEDS ORDERED: fentaNYL (PF) 50 MCG/ML 2 ML AMP IVP ONE (06:56)
--- NOTE | 2020-01-31 07:06 | P.ANPRN ---
Procedure Note - Anesthesia - Nerve Block Performed Right Transversus Abdominis Single Time Out Performed: Yes Date of Procedure: 01/31/20 Procedure Start Time: 06:56 Procedure Stop Time: 07:00 Location of Patient: PreOp Indication: Acute Post-Operative Pain, Requested by Surgeon Specifically requested for management of pain by DrElian: Rosas Chapman Sedation Type: Sedate with meaningful contact maintained Preparation: Sterile Prep Position: Supine Needle Types: Pajunk Needle Gauge: 21 Ultrasound used to visualize needle placement: Yes Ultrasound used to observe medication spread: Yes Injectate: 0.5% Ropivacaine (see comment for volume) (20 ml) Blood Aspirated: No Pain Paresthesia on Injection Noted: No Resistance on Injection: Normal Image Stored and Saved: Yes Events: Uneventful and Well Tolerated
[2020-01-31] MEDS ORDERED: BUPIVACAINE (PF) 0.25% 30 ML VIAL SQ ONE ×2 (07:36→08:53)
[2020-01-31] MEDS ORDERED: fentaNYL (PF) 50 MCG/ML 2 ML AMP ONE (07:42)
[2020-01-31] MEDS ORDERED: LIDOCAINE 1% INJ 10MG/ML (20 ML MDV) ONE (07:42)
[2020-01-31] MEDS ORDERED: SUCCINYLCHOLINE CHLORIDE 100 MG/5 ML SYR IV ONE (07:42)
[2020-01-31] MEDS ORDERED: ROPIVACAINE 5 MG/ML 30 ML VIAL ONE (07:42)
[2020-01-31] MEDS ORDERED: ePHEDrine SULFATE/0.9% NACL/PF 50 MG/5 ML SYRINGE IV ONE (07:42)
[2020-01-31] MEDS ORDERED: PROPOFOL 10 MG/ML 20 ML VIAL IV ONE (07:42)
[2020-01-31] MEDS ORDERED: LACTATED RINGERS 1,000 ML IV ONE (09:04)
[2020-01-31] MEDS ORDERED: BACITRACIN ZINC 500 UNIT/GM OINT 28.4 GM TUBE TOPICAL ONE (09:21)
--- NOTE | 2020-01-31 09:33 | P.OP ---
Date of Procedure: 01/31/20 Procedure(s) Performed: PREOPERATIVE DIAGNOSIS: Right inguinal hernia, upper back sebaceous cyst POSTOPERATIVE DIAGNOSIS: Same PROCEDURE: Right inguinal hernia repair with mesh, excision upper back sebaceous cyst SURGEON: Ari EBL: Minimal ANESTHESIA: General COMPLICATIONS: None OPERATIVE PROCEDURE: Patient was placed in the operating table in the supine position and placed under general anesthesia. An oblique incision was made in the right groin. Dissection down through the subcutaneous tissues took place using electrocautery. The external oblique fascia was incised using a scalpel. This opening was lengthened using the Metzenbaum scissors. The spermatic cord was encircled with a Bautista drain. The structures were identified and preserved. Careful dissection revealed an indirect hernia sac. The hernia sac was opened. There was a small portion of the appendix and cecum within the jermaine ia sac that was sharply dissected back to the abdominal cavity. Once we had adequate mobilization the sac was carefully dissected back to the internal inguinal ring where it was ligated using 2 separate 0 silk stick tie sutures. A 3" x 6" Prolene mesh was cut to fit on the exposed fascia. This was sutured to the pubic tubercle the folding edge of the inguinal ligament and the conjoined tendon. A slit was created in the mesh and the mesh was wrapped around the spermatic cord and sutured back to itself. The external oblique was then reapproximated using a running 2-0 Vicryl suture. The subcutaneous tissues were reapproximated using a 3-0 Vicryl sutures. The skin was closed using 4-0 Monocryl sutures. Steri-Strips and sterile dressings were then applied. The patient was next placed in the left decubitus position. The upper back was prepped and draped sterilely. The large sebaceous cyst was excised with the overlying skin intact. This measured 4 x 5 cm in size. This was excised using both sharp dissection and electrocautery. The subcutaneous tissues were inspected. No bleeding was seen. The subcutaneous layers were reapproximated interrupted 3-0 Vicryl sutures. The skin was closed using a running 4-0 nylon suture. Sterile dressings were then applied. DISPOSITION: Stable to recovery room
[2020-01-31 09:50] VITALS: TEMP 97.1
[2020-01-31 09:54] LABS: Glucose,Whole Blood 208 mg/dL (75-99)
[2020-01-31] MEDS ORDERED: INSULIN ASPART (NovoLOG) 100 UNIT/ML VIAL SQ ONE (10:00)
[2020-01-31 11:20] VITALS: RESP 16
[2020-01-31 11:22] VITALS: BP 135/72; PULSE 74
[2020-01-31] MEDS ORDERED: ACETAMINOPHEN TAB 325 MG TAB PO SCH (12:00)
[2020-01-31] MEDS ORDERED: IBUPROFEN 600 MG TAB PO SCH (15:00)
== END 2020-01-31 12:09 | disposition home or self-care (01) ==
LOC: OR 05:41
PROVIDERS: ATTEND Surgery
DX: K40.30 Unilateral inguinal hernia, with obstruction, without gangrene, not specified as recurrent (principal); L72.0 Epidermal cyst; E11.9 Type 2 diabetes mellitus without complications; H91.90 Unspecified hearing loss, unspecified ear; E78.5 Hyperlipidemia, unspecified; K57.90 Diverticulosis of intestine, part unspecified, without perforation or abscess without bleeding; N40.0 Benign prostatic hyperplasia without lower urinary tract symptoms; E07.9 Disorder of thyroid, unspecified; Z87.891 Personal history of nicotine dependence; D50.9 Iron deficiency anemia, unspecified; M20.42 Other hammer toe(s) (acquired), left foot; M20.41 Other hammer toe(s) (acquired), right foot; R55 Syncope and collapse; Z97.2 Presence of dental prosthetic device (complete) (partial); Z87.442 Personal history of urinary calculi; Z87.19 Personal history of other diseases of the digestive system; Z85.828 Personal history of other malignant neoplasm of skin; Z98.890 Other specified postprocedural states; Z98.42 Cataract extraction status, left eye; Z98.41 Cataract extraction status, right eye; Z96.1 Presence of intraocular lens; Z82.49 Family history of ischemic heart disease and other diseases of the circulatory system; Z82.3 Family history of stroke; Z79.84 Long term (current) use of oral hypoglycemic drugs; Z79.890 Hormone replacement therapy; Z79.899 Other long term (current) drug therapy
CPT/HCPCS: 64486; 88304; 49507; 11406; C1781; J1644; J1100; J0690; J2405; J2001; J3010; J2795; J0330; J2704

== ENCOUNTER 2023-08-30 05:14 | Inpatient (IN) | payer BC, MEDICARE ==
[2023-08-30 05:46] LABS: Anisocytosis Slight; Basophils % (A) 0 %; Eosinophils # (A) 0.1 k/uL (0-0.7); Eosinophils % (A) 1 %; HCT 21.4 % (39.0-53.0); Hypochromasia Marked; Lymphocytes # (A) 1.3 k/uL (1.0-4.8); Lymphocytes % (A) 26 %; MCH 22.5 pg (25.0-35.0); MCHC 30.4 g/dL (31.0-37.0); Microcytosis Slight; Monocytes # (A) 0.3 k/uL (0-1.0); Monocytes % (A) 6 %; Neutrophils # (A) 3.3 k/uL (1.3-7.7); Neutrophils % (A) 64 %; Platelet Count 295 k/uL (150-450); Poikilocytosis Slight; RBC 2.89 m/uL (4.30-5.90); WBC 5.1 k/uL (3.8-10.6)
[2023-08-30 06:01] LABS: Prothrombin Time 10.9 sec (10.0-12.5)
[2023-08-30 06:04] LABS: ALT 18 U/L (4-49); AST 24 U/L (17-59); African American GFR (CKD) >90 (>60 ml/min/1.73 sqM); Albumin 3.5 g/dL (3.5-5.0); Alkaline Phosphatase 87 U/L (38-126); Anion Gap 6 mmol/L; Blood Urea Nitrogen 26 mg/dL (9-20); Calcium 8.9 mg/dL (8.4-10.2); Carbon Dioxide 26 mmol/L (22-30); Chloride 105 mmol/L (98-107); Glucose 157 mg/dL (74-99); Non-African American GFR(CKD) 80 (>60 ml/min/1.73 sqM); Sodium 137 mmol/L (137-145); Total Bilirubin 0.5 mg/dL (0.2-1.3); Total Protein 5.8 g/dL (6.3-8.2)
[2023-08-30 06:20] LABS: HGB 6.5 gm/dL (13.0-17.5)
[2023-08-30 06:25] LABS: Partial Thromboplastin Time 21.8 sec (22.0-30.0)
[2023-08-30] MEDS ORDERED: NALOXONE 0.4 MG/ML 1 ML VIAL IV PRN (06:40)
--- NOTE | 2023-08-30 06:40 | ED ---
Recheck HPI - General Chief Complaint: Recheck/Abnormal Lab/Rx Stated Complaint: Abnormal Lab, Low Hemoglobin Time Seen by Provider: 08/30/23 05:18 Source: patient Mode of arrival: ambulatory - History of Present Illness Initial Comments: Cristofer is a pleasant 62-year-old male who is very hard of hearing, history is provided primarily by the at bedside. Patient has been having dark stools for a number of weeks, today he followed in Dr. Macdonald's office because his primary care doctor Is on Maternity Leave. Patient Had Outpatient Labs and Was Called at 4:00 This Morning and Notified That His Hemoglobin Was Critically Low and He Needed to Come to the Hospital. Patient admits to weakness and fatigue but denies any pain. does not believe he is ever had a colonoscopy. - Related Data Home Medications Medication Instructions Recorded Confirmed Atorvastatin [Lipitor] 40 mg PO DAILY 07/24/16 01/31/20 Losartan Potassium 100 mg PO DAILY 07/24/16 01/31/20 Pioglitazone HCl/Metformin HCl 1 each PO Q12H 07/24/16 01/31/20 [Pioglitazone-Metformin 15850] glipiZIDE [Glucotrol] 5 mg PO BID 07/24/16 01/31/20 Ascorbic Acid [Vitamin C] 250 mg PO BID 07/15/19 01/31/20 Ferrous Sulfate [Iron] 325 mg PO BID 07/15/19 01/31/20 Levothyroxine Sodium 25 mcg PO DAILY 07/15/19 01/31/20 Lidocaine 5% Patch [Lidoderm 5% 1 patch TOPICAL DAILY 07/15/19 01/31/20 Patch] Tamsulosin HCl [Flomax] 0.4 mg PO DAILY 07/15/19 01/31/20 hydroCHLOROthiazide 25 mg PO DAILY 07/15/19 01/31/20 sitaGLIPtin [Januvia] 100 mg PO DAILY 07/15/19 01/31/20 Multivitamins, Thera [Multivitamin 1 tab PO DAILY 01/30/20 01/31/20 (formulary)] Previous Rx's Medication Instructions Recorded traMADol HCl [Ultram] 50 mg PO Q6H PRN #6 tab 01/31/20 Allergies Allergy/AdvReac Type Severity Reaction Status Date / Time No Known Allergies Allergy Verified 08/30/23 05:38 Review of Systems ROS Statement: Those systems with pertinent positive or pertinent negative responses have been documented in the HPI. ROS Other: All systems not noted in ROS Statement are negative. Past Medical History Past Medical History: Diabetes Mellitus, Hearing Disorder / Deafness, H yperlipidemia, Prostate Disorder, Syncope Additional Past Medical History / Comment(s): kidney stones, type II diabetes, GI bleed on 07/15/19, cyst neck area, hernia History of Any Multi-Drug Resistant Organisms: None Reported Past Surgical History: No Surgical Hx Reported Additional Past Surgical History / Comment(s): Kidney stone lithotripsy. Past Anesthesia/Blood Transfusion Reactions: No Reported Reaction Past Psychological History: No Psychological Hx Reported Smoking Status: Never smoker Past Alcohol Use History: None Reported Past Drug Use History: None Reported - Past Family History Mother Family Medical History: CVA/TIA General Exam - General Exam Comments Initial Comments: Physical Exam GENERAL: Elderly gentleman who is quite pale HENT: Normocephalic, Atraumatic. EYES: PERRL, EOMI Conjunctival pallor PULMONARY: Unlabored respirations. CARDIOVASCULAR: RRR Warm and well perfused extremities ABDOMEN: Non-distended SKIN: Pale : Deferred NEUROLOGIC: Hard of hearing MUSCULOSKELETAL: Moving all extremities with no apparent injury PSYCHIATRIC: No SI/HI Course Vital Signs 08/30/23 08/30/23 05:30 06:30 Temperature 97.9 F Pulse Rate 80 82 Respiratory 19 18 Rate Blood Pressure 118/62 139/64 O2 Sat by Pulse 98 97 Oximetry Medical Decision Making - Medical Decision Making Was pt. sent in by a medical professional or institution (, PA, MACHINE OPERATOR HAY STACKER, urgent care, hospital, or [place] health care facility...) When possible be specific @ -Yes sent by Dr. Macdonald Did you speak to anyone other than the patient for history (EMS, parent, family, police, friend...)? What history was obtained from this source @ - at bedside, Dr. Macdonald Did you review nursing and triage notes (agree or disagree)? Why? @ -I reviewed and agree with nursing and triage notes Were old charts reviewed (outside hosp., previous admission, EMS record, old EKG, old radiological studies, urgent care reports/EKG's, [place] health care facility records)? Report findings @ -Previous labs were reviewed anemia is new Differential Diagnosis (chest pain, altered mental status, abdominal pain women, abdominal pain men, vaginal bleeding, weakness, fever, dyspnea, syncope, headache, dizziness, GI bleed, back pain, seizure, CVA, palpatations, mental health)? @ -MDM differential includes upper GI bleeding, acute blood loss anemia, lab er ror EKG interpreted by me (3pts min.). @ -As above X-rays interpreted by me (1pt min.). @ -None done CT interpreted by me (1pt min.). @ -None done U/S interpreted by me (1pt. min.). @ -None done What testing was considered but not performed or refused? (CT, X-rays, U/S, labs)? Why? @ -None What meds were considered but not given or refused? Why? @ -None Did you discuss the management of the patient with other professionals (professionals i.e. , PA, MACHINE OPERATOR HAY STACKER, lab, RT, psych nurse, rn social services, speech coach, teacher, commanding officer garage, top case assembler)? Give summary @ -No Was smoking cessation discussed for >3mins.? @ -No Was critical care preformed (if so, how long)? @ -Yes, 35 minutes Were there social determinants of health that impacted care today? How? (Homelessness, low income, unemployed, alcoholism, drug addiction, transportation, low edu. Level, literacy, decrease access to med. care, detention, rehab)? @ -No Was there de-escalation of care discussed even if they declined (Discuss DNR or withdrawal of care, Hospice)? DNR status @ -No What co-morbidities impacted this encounter? (DM, HTN, Smoking, COPD, CAD, Cancer, CVA, ARF, Chemo, Hep., AIDS, mental health diagnosis, sleep apnea, morbid obesity)? @ -None Was patient admitted / discharged? Hospital course, mention meds given and route, prescriptions, significant lab abnormalities, going to OR and other pertinent info. @ -Admit Patient care was discussed with patient sending physician Dr. Macdonald. Patient with weeks of what sounds like upper GI bleeding with dark stools. Patient with critical anemia with a hemoglobin of 6.5 in the outpatient setting. Repeat labs were performed when patient arrived here and hemoglobin is 6.3. Patient is agreeable to transfusion and admission for GI consult. Undiagnosed new problem with uncertain prognosis? @ -Yes Drug Therapy requiring intensive monitoring for toxicity (Heparin, Nitro, Insulin, Cardizem)? @ -No Were any procedures done? @ -No Diagnosis/symptom? @ -Blood loss anemia Acute, or Chronic, or Acute on Chronic? @ -Acute Uncomplicated (without systemic symptoms) or Complicated (systemic symptoms)? @ -Complicated Side effects of treatment? @ -No Exacerbation, Progression, or Severe Exacerbation? @ -No Poses a threat to life or bodily function? How? (Chest pain, [place], VA, pneumonia, PE, COPD, DKA, ARF, appy, cholecystitis, CVA, Diverticulitis, Homicidal, S uicidal, threat to staff... and all critical care pts) @ -Yes - Lab Data Result diagrams: 08/30/23 05:08/30/23 05: Lab Results 08/30/23 08/30/23 08/30/23 Range/Units 05:29 05:29 05:29 WBC 5.1 (3.8-10.6) k/uL RBC 2.89 L (4.30-5.90) m/uL Hgb 6.5 L* (13.0-17.5) gm/dL Hct 21.4 L (39.0-53.0) % MCV 74.0 L (80.0-100.0) fL MCH 22.5 L (25.0-35.0) pg MCHC 30.4 L (31.0-37.0) g/dL RDW 16.0 H (11.5-15.5) % Plt Count 295 (150-450) k/uL MPV 8.0 Neutrophils % 64 % Lymphocytes % 26 % Monocytes % 6 % Eosinophils % 1 % Basophils % 0 % Neutrophils # 3.3 (1.3-7.7) k/uL Lymphocytes # 1.3 (1.0-4.8) k/uL Monocytes # 0.3 (0-1.0) k/uL Eosinophils # 0.1 (0-0.7) k/uL Basophils # 0.0 (0-0.2) k/uL Hypochromasia Marked Poikilocytosis Slight Anisocytosis Slight Microcytosis Slight PT 10.9 (10.0-12.5) sec INR 1.0 (<1.2) APTT 21.8 L (22.0-30.0) sec Sodium 137 (137-145) mmol/L Potassium 4.0 (3.5-5.1) mmol/L Chloride 105 (98-107) mmol/L Carbon Dioxide 26 (22-30) mmol/L Anion Gap 6 mmol/L BUN 26 H (9-20) mg/dL Creatinine 0.82 (0.66-1.25) mg/dL Est GFR (CKD-EPI)AfAm >90 (>60 ml/min/1.73 sqM) Est GFR (CKD-EPI)NonAf 80 (>60 ml/min/1.73 sqM) Glucose 157 H (74-99) mg/dL Plasma Lactic Acid Frederick (0.7-2.0) mmol/L Calcium 8.9 (8.4-10.2) mg/dL Total Bilirubin 0.5 (0.2-1.3) mg/dL AST 24 (17-59) U/L ALT 18 (4-49) U/L Alkaline Phosphatase 87 (38-126) U/L Troponin I (0.000-0.034) ng/mL Total Protein 5.8 L (6.3-8.2) g/dL Albumin 3.5 (3.5-5.0) g/dL 08/30/23 08/30/23 Range/Units 05:29 05:30 WBC (3.8-10.6) k/uL RBC (4.30-5.90) m/uL Hgb (13.0-17.5) gm/dL Hct (39.0-53.0) % MCV (80.0-100.0) fL MCH (25.0-35.0) pg MCHC (31.0-37.0) g/dL RDW (11.5-15.5) % Plt Count (150-450) k/uL MPV Neutrophils % % Lymphocytes % % Monocytes % % Eosinophils % % Basophils % % Neutrophils # (1.3-7.7) k/uL Lymphocytes # (1.0-4.8) k/uL Monocytes # (0-1.0) k/uL Eosinophils # (0-0.7) k/uL Basophils # (0-0.2) k/uL Hypochromasia Poikilocytosis Anisocytosis Microcytosis PT (10.0-12.5) sec INR (<1.2) APTT (22.0-30.0) sec Sodium (137-145) mmol/L Potassium (3.5-5.1) mmol/L Chloride (98-107) mmol/L Carbon Dioxide (22-30) mmol/L Anion Gap mmol/L BUN (9-20) mg/dL Creatinine (0.66-1.25) mg/dL Est GFR (CKD-EPI)AfAm (>60 ml/min/1.73 sqM) Est GFR (CKD-EPI)NonAf (>60 ml/min/1.73 sqM) Glucose (74-99) mg/dL Plasma Lactic Acid Frederick 1.2 (0.7-2.0) mmol/L Calcium (8.4-10.2) mg/dL Total Bilirubin (0.2-1.3) mg/dL AST (17-59) U/L ALT (4-49) U/L Alkaline Phosphatase (38-126) U/L Troponin I <0.012 (0.000-0.034) ng/mL Total Protein (6.3-8.2) g/dL Albumin (3.5-5.0) g/dL Disposition Clinical Impression: Acute blood loss anemia, Upper GI bleeding Disposition: ADMITTED IP TO THIS HOSP Condition: Serious Is patient prescribed a controlled substance at d/c from ED?: No Referrals: Adolfo Nash MD [Primary Care Provider] - 1-2 days
[2023-08-30] MEDS: SODIUM CHLORIDE 0.9% 1,000 ML IV SCH (09:20)
[2023-08-30] MEDS ORDERED: DEXTROSE 50% SYRINGE 50 ML IVP PRN ×2 (09:54)
[2023-08-30 11:00] VITALS: TEMP 97.8
[2023-08-30 11:02] LABS: Glucose,Whole Blood 178 mg/dL (70-110)
[2023-08-30] MEDS: INSULIN ASPART (NovoLOG) 100 UNIT/ML VIAL SQ SCH (11:03)
[2023-08-30] MEDS: ATORVASTATIN 40 MG TAB PO SCH (11:07)
[2023-08-30] MEDS: LOSARTAN 50 MG TAB PO SCH (11:07)
[2023-08-30] MEDS: TAMSULOSIN 0.4 MG CAP.ER.24H PO SCH (11:07)
--- NOTE | 2023-08-30 11:07 | P.HPIM ---
History of Present Illness H&P Date: 08/30/23 Patient is a 62-year-old male with history of hypertension, dyslipidemia, type 2 diabetes, BPH presenting with anemia. Patient is extremely hard of hearing and is a poor historian. is present at bedside. She claims that he has been having diarrhea for almost 2 weeks which self resolved 2 days ago. Did not notice any hematochezia or melena. Some subjective fevers, denies any chills, denies any chest pain, shortness of breath, abdominal pain, urinary complaints. 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 In the ED, temperature was 97.9, pulse 80, respiratory rate 19, blood pressure 118/62, saturating 98% on room air. WBC 5.1, hemoglobin 6.5, MCV 74.0, INR 1, PTT 21.8, BUN 26, creatinine 0.82, lactate 1.2, troponin negative. Patient given 1 unit of PRBCs in the ED. GI consulted. Pending further workup for anemia. Pertinent positives and negatives as discussed in HPI, a complete review of systems was performed and all other systems are negative. Patient seen and examined at bedside. Vital signs reviewed General: nontoxic, no distress, appears at stated age, hard of hearing Derm: warm, dry Head: atraumatic, normocephalic, symmetric Eyes: EOMI, no lid lag, anicteric sclera, pupils equal round reactive to light ENT: Nose and ears atraumatic Neck: No thyromegaly, supple Mouth: no lip lesion, mucus membranes moist Cardiovascular: S1S2 reg, no murmur, no edema Lungs: clear to auscultation bilateral, no rhonchi, no rales, no wheeze, no accessory muscle use Abdominal: soft, nontender to palpation, no guarding, no appreciable organomegaly Ext: no gross muscle atrophy, muscle strength muscle strength 5 out of 5 in all 4 extremities, no contractures Neuro: CN II-XII grossly intact Psych: Alert, oriented, appropriate affect Assessment/Plan: Microcytic anemia History of iron deficiency anemia Suspected acute GI bleed Suspected acute blood loss anemia -GI consulted -Undergoing 1 unit of PRBC transfusion -Repeat CBC tomorrow -Pending iron studies -Keep n.p.o. till patient is seen by GI -Continue normal saline at 75 cc an hour Hypertension -Hold hydrochlorothiazide -Continue losartan 100 mg daily Dyslipidemia -Continue atorvastatin 40 mg daily BPH -Continue Flomax 0.4 mg daily The patient is admitted with an anticipated greater than 2 midnight stay as inpatient status for evaluation of GI bleed. Surrogate decision-maker: CODE STATUS: Full code DVT prophylaxis: SCDs Anticipated discharge date: Pending clinical course Anticipated discharge place: Pending clinical course A total of 55 minutes was spent on the care of this complex patient more than 50% of the time was spent in counseling and care coordination. Past Medical History Past Medical History: Diabetes Mellitus, Hearing Disorder / Deafness, Hyperlipidemia, Prostate Disorder, Syncope Additional Past Medical History / Comment(s): kidney stones, type II diabetes, GI bleed on 07/15/19, cyst neck area, hernia History of Any Multi-Drug Resistant Organisms: None Reported Past Surgical History: No Surgical Hx Reported Additional Past Surgical History / Comment(s): Kidney stone lithotripsy. Past Anesthesia/Blood Transfusion Reactions: No Reported Reaction Past Psychological History: No Psychological Hx Reported Smoking Status: Never smoker Past Alcohol Use History: None Reported Past Drug Use History: None Reported - Past Family History Mother Family Medical History: CVA/TIA Medications and Allergies Home Medications Medication Instructions Recorded Confirmed Type Atorvastatin [Lipitor] 40 mg PO DAILY 07/24/16 08/30/23 History Losartan Potassium 100 mg PO DAILY 07/24/16 08/30/23 History Pioglitazone HCl/Metformin HCl 1 each PO Q12H 07/24/16 08/30/23 History [Pioglitazone-Metformin 15] glipiZIDE [Glucotrol] 5 mg PO BID 07/24/16 08/30/23 History Tamsulosin HCl [Flomax] 0.4 mg PO DAILY 07/15/19 08/30/23 History hydroCHLOROthiazide 25 mg PO DAILY 07/15/19 08/30/23 History Dapagliflozin Propanediol [Farxiga] 10 mg PO DAILY 08/30/23 08/30/23 History Fluticasone Nasal [place] [Flonase 2 spray EA NOSTRIL DAILY 08/30/23 08/30/23 History Nasal [place]] Loratadine [Claritin] 10 mg PO DAILY 08/30/23 08/30/23 History Allergies Allergy/AdvReac Type Severity Reaction Status Date / Time No Known Allergies Allergy Verified 08/30/23 10:18 Physical Exam Vitals: Vital Signs Temp Pulse Resp BP Pulse Ox 08/30/23 10:45 97.8 F 62 16 134/62 97 08/30/23 09:00 81 16 129/66 97 08/30/23 08:56 97.8 F 62 16 129/61 08/30/23 08:36 97.8 F 68 16 140/62 08/30/23 08:18 97.8 F 66 14 131/57 08/30/23 06:30 82 18 139/64 97 08/30/23 05:30 97.9 F 80 19 118/62 98 Intake and Output 08/29/23 08/30/23 08/30/23 22:59 06:59 14:59 Intake Total 310 Balance 310 Intake: Blood Product 310 Rc As-1 Unit 310 [id number] Other: Weight 72.575 kg Results CBC & Chem 7: 08/30/23 05:29 08/30/23 05:29 Labs: Abnormal Lab Results - Last 24 Hours (Table) 08/30/23 08/30/23 08/30/23 Range/Units 05:29 05:29 05:29 RBC 2.89 L (4.30-5.90) m/uL Hgb 6.5 L* (13.0-17.5) gm/dL Hct 21.4 L (39.0-53.0) % MCV 74.0 L (80.0-100.0) fL MCH 22.5 L (25.0-35.0) pg MCHC 30.4 L (31.0-37.0) g/dL RDW 16.0 H (11.5-15.5) % APTT 21.8 L (22.0-30.0) sec BUN 26 H (9-20) mg/dL Glucose 157 H (74-99) mg/dL POC Glucose (mg/dL) (70-110) mg/dL Total Protein 5.8 L (6.3-8.2) g/dL Crossmatch 08/30/23 08/30/23 Range/Units 06:45 11:01 RBC (4.30-5.90) m/uL Hgb (13.0-17.5) gm/dL Hct (39.0-53.0) % MCV (80.0-100.0) fL MCH (25.0-35.0) pg MCHC (31.0-37.0) g/dL RDW (11.5-15.5) % APTT (22.0-30.0) sec BUN (9-20) mg/dL Glucose (74-99) mg/dL POC Glucose (mg/dL) 178 H (70-110) mg/dL Total Protein (6.3-8.2) g/dL Crossmatch See Detail
[2023-08-30] MEDS: PANTOPRAZOLE 40 MG/10 ML VIAL IVP SCH (11:10)
--- NOTE | 2023-08-30 11:11 | P.CONS ---
History of Present Illness - Reason for Consult Consult date: 08/30/23 Anemia, black stool Requesting physician: Julissa Pope - Chief Complaint Low hemoglobin - History of Present Illness This is a pleasant 88-year-old male who is scented to the emergency department by his primary care physician's office after being seen with complaints of diarrhea for a week and a half. Patient had blood work done and was notified that his hemoglobin was low and he should go to the emergency department for evaluation. On arrival patient's hemoglobin was 6.5 and he is currently getting a unit of blood transfused. He has a past medical history including diabetes mellitus, iron deficiency anemia, hearing disorder, hyperlipidemia, prostate disorder and syncope. Patient is at the bedside and much of the history was obtained from her as patient is hard of hearing. She states that he was having diarrhea for about a week and a half and that is what prompted them to see their primary care physician. He was having several loose diarrhea and 1 to 2 days of nausea and vomiting. No associated fever or chills. She states during that week and a half he had 1 or 2 episodes of black stool. He denies any NSAID use, no anticoagulation, he is oral iron for history of iron deficiency anemia. Had similar episode few years ago and underwent upper and lower endoscopy in June [address] Rojas. EGD with findings of nonbleeding angioectasia status post argon plasma coagulation and mild gastritis. Colonoscopy reported small ascending colon polyp status post cold snare polypectomy, mild left colonic diverticulosis and low-grade internal hemorrhoids. He denies any abdominal pain, no nausea or vomiting. Diarrhea is improved and his stool is now formed. Review of Systems REVIEW OF SYSTEMS: CARDIOPULMONARY: No chest pain or shortness of breath. Gastrointestinal: No abdominal pain. No nausea or vomiting. No hematemesis, coffee-ground emesis. No rectal bleeding, reported 1-2 episodes of black stool. Recent diarrhea for 1-1/2 weeks. GENITOURINARY: No dysuria or hematuria. MUSCULOSKELETAL: Reports normal range of motion., Joint pain. SKIN: No rashes. No jaundice. ENDOCRINE: No chills, fevers. No excessive weight gain or loss. No polydipsia or polyuria. PSYCHIATRIC: Unremarkable. NEUROLOGY: No change in mental status. Denies dizziness, headache. ENT: Vision unremarkable. CONSTITUTIONAL: No recent weight loss. No fever, chills, night sweats. Past Medical History Past Medical History: Diabetes Mellitus, Hearing Disorder / Deafness, Hyperli pidemia, Prostate Disorder, Syncope Additional Past Medical History / Comment(s): kidney stones, type II diabetes, GI bleed on 07/15/19, cyst neck area, hernia History of Any Multi-Drug Resistant Organisms: None Reported Past Surgical History: No Surgical Hx Reported Additional Past Surgical History / Comment(s): Kidney stone lithotripsy. Past Anesthesia/Blood Transfusion Reactions: No Reported Reaction Past Psychological History: No Psychological Hx Reported Smoking Status: Never smoker Past Alcohol Use History: None Reported Past Drug Use History: None Reported - Past Family History Mother Family Medical History: CVA/TIA Medications and Allergies Home Medications Medication Instructions Recorded Confirmed Type Atorvastatin [Lipitor] 40 mg PO DAILY 07/24/16 08/30/23 History Losartan Potassium 100 mg PO DAILY 07/24/16 08/30/23 History Pioglitazone HCl/Metformin HCl 1 each PO Q12H 07/24/16 08/30/23 History [Pioglitazone-Metformin 15] glipiZIDE [Glucotrol] 5 mg PO BID 07/24/16 08/30/23 History Tamsulosin HCl [Flomax] 0.4 mg PO DAILY 07/15/19 08/30/23 History hydroCHLOROthiazide 25 mg PO DAILY 07/15/19 08/30/23 History Dapagliflozin Propanediol [Farxiga] 10 mg PO DAILY 08/30/23 08/30/23 History Fluticasone Nasal [place] [Flonase 2 spray EA NOSTRIL DAILY 08/30/23 08/30/23 History Nasal [place]] Loratadine [Claritin] 10 mg PO DAILY 08/30/23 08/30/23 History Allergies Allergy/AdvReac Type Severity Reaction Status Date / Time No Known Allergies Allergy Verified 08/30/23 10:18 Physical Exam Vitals: Vital Signs Temp Pulse Resp BP Pulse Ox 08/30/23 08:18 97.8 F 66 14 131/57 08/30/23 06:30 82 18 139/64 97 08/30/23 05:30 97.9 F 80 19 118/62 98 Intake and Output 08/29/23 08/30/23 08/30/23 22:59 06:59 14:59 Intake Total 0 Balance 0 Intake: Blood Product 0 Rc As-1 Unit 0 [id number] Other: Weight 72.575 kg General appearance: The patient is alert, oriented, appears in no acute distress. Hard of hearing. HET: Head is normocephalic and atraumatic. Conjunctiva pink. Sclera anicteric. Neck: Supple without lymphadenopathy. Trachea midline. Heart: Regular. Lungs: Equal expansion, normal respiratory effort. Abdomen: Soft, nontender, nondistended. Skin: No rashes. No jaundice. Extremities: Normal skin color and turgor. No pedal edema. Neurological: No focal deficits. Alert and oriented x3. Results CBC & Chem 7: 08/30/23 05:29 08/30/23 05:29 Labs: Abnormal Lab Results - Last 24 Hours (Table) 08/30/23 08/30/23 08/30/23 Range/Units 05:29 05:29 05:29 RBC 2.89 L (4.30-5.90) m/uL Hgb 6.5 L* (13.0-17.5) gm/dL Hct 21.4 L (39.0-53.0) % MCV 74.0 L (80.0-100.0) fL MCH 22.5 L (25.0-35.0) pg MCHC 30.4 L (31.0-37.0) g/dL RDW 16.0 H (11.5-15.5) % APTT 21.8 L (22.0-30.0) sec BUN 26 H (9-20) mg/dL Glucose 157 H (74-99) mg/dL Total Protein 5.8 L (6.3-8.2) g/dL Crossmatch 08/30/23 Range/Units 06:45 RBC (4.30-5.90) m/uL Hgb (13.0-17.5) gm/dL Hct (39.0-53.0) % MCV (80.0-100.0) fL MCH (25.0-35.0) pg MCHC (31.0-37.0) g/dL RDW (11.5-15.5) % APTT (22.0-30.0) sec BUN (9-20) mg/dL Glucose (74-99) mg/dL Total Protein (6.3-8.2) g/dL Crossmatch See Detail Assessment and Plan (1) Hypochromic microcytic anemia Narrative/Plan: 88-year-old male with history of iron deficiency anemia and previous upper GI bleed presenting with low hemoglobin and complaints of diarrhea for 1 and half weeks now resolved with 1 to 2 days of black stools. Patient with previous upper and lower endoscopy in 2019 for similar complaints. Upper endoscopy with finding of nonbleeding angioectasia which was treated. Colonoscopy status post polypectomy mild diverticulosis and low-grade internal hemorrhoids. Unclear etiology of diarrhea however that has resolved. Possible etiologies for anemia include angioectasia, peptic ulcer disease, gastritis or other possible etiologies. Recommend Protonix 40 mg daily for GI prophylaxis, and proceed with upper endoscopy for further evaluation. Current Visit: Yes Status: Acute Code(s): D50.9 - IRON DEFICIENCY ANEMIA, UNSPECIFIED SNOMED Code(s): 54039380 (2) Melena Current Visit: Yes Status: Acute Code(s): K92.1 - MELENA SNOMED Code(s): 2671948 Plan: 1. Continue symptomatic and supportive care 2. Agree with blood transfusion 3. Daily CBC, transfuse for hemoglobin less than 7 4. Patient can have full liquid diet, n.p.o. after midnight 5. Protonix 40 mg IV daily for GI prophylaxis 6. Iron and ferritin levels ordered 7. Patient to be scheduled for upper endoscopy tomorrow. Procedure discussed with patient and his who are at the bedside and agreeable. Thank you for this consultation, we will continue to follow. Dr. Ajay Pemberton I agree with the dictator's note, documented as a scribe by Mallika Cardona.
[2023-08-30 17:28] LABS: Glucose,Whole Blood 178 mg/dL (70-110)
[2023-08-30 21:16] LABS: Glucose,Whole Blood 175 mg/dL (70-110)
[2023-08-30 23:38] LABS: % Iron Saturation 2.53 (15.00-50.00); Ferritin 9.2 ng/mL (22.0-322.0)
[2023-08-31 06:39] LABS: Glucose,Whole Blood 117 mg/dL (70-110)
[2023-08-31 06:56] LABS: Anisocytosis Slight; HCT 24.1 % (39.0-53.0); HGB 7.2 gm/dL (13.0-17.5); Hypochromasia Marked; MCH 22.8 pg (25.0-35.0); MCHC 29.7 g/dL (31.0-37.0); MCV 76.7 fL (80.0-100.0); Mean Platelet Volume 7.4; Microcytosis Slight; Platelet Count 299 k/uL (150-450); Poikilocytosis Slight; RBC 3.14 m/uL (4.30-5.90); RDW 16.6 % (11.5-15.5); WBC 4.4 k/uL (3.8-10.6)
[2023-08-31 07:22] LABS: African American GFR (CKD) >90 (>60 ml/min/1.73 sqM); Anion Gap 4 mmol/L; Blood Urea Nitrogen 18 mg/dL (9-20); Calcium 8.7 mg/dL (8.4-10.2); Carbon Dioxide 26 mmol/L (22-30); Chloride 108 mmol/L (98-107); Glucose 107 mg/dL (74-99); Non-African American GFR(CKD) 82 (>60 ml/min/1.73 sqM); Potassium 4.1 mmol/L (3.5-5.1); Sodium 138 mmol/L (137-145)
[2023-08-31 08:11] LABS: Glucose,Whole Blood 139 mg/dL (70-110)
[2023-08-31] MEDS: LORATADINE 10 MG TAB PO SCH (08:44)
[2023-08-31] MEDS: SODIUM FERRIC GLUCONAT-SUCROSE 125 MG in SODIUM CHLORIDE 0.9% 100 ML IVPB SCH (09:53)
[2023-08-31] MEDS ORDERED: PROPOFOL 10 MG/ML 20 ML VIAL IV ONE (14:04)
[2023-08-31] MEDS ORDERED: LIDOCAINE 2% (PF) 20 MG/ML 5 ML VIAL ONE (14:04)
[2023-08-31] MEDS: IV FLUID CONTINUATION 1,000 ML IV ONE (14:08)
--- NOTE | 2023-08-31 14:25 | P.PCN ---
Date of Procedure: 08/31/23 Procedure(s) Performed: BRIEF HISTORY: Patient is a 88-year-old, pleasant, white male scheduled for an upper endoscopy as a part of evaluation of severe symptomatic iron deficiency anemia and a hemoglobin of 6.5 g/dL requiring PRBC transfusion. His last EGD and colonoscopy in 2019 revealed duodenal angioectasia.. PROCEDURE PERFORMED: Esophagogastroduodenoscopy with argon plasma Coagulation. PREOPERATIVE DIAGNOSIS: Severe symptomatic iron deficiency anemia. IV sedation per anesthesia. PROCEDURE: After informed consent was obtained, the patient was brought into the endoscopy unit. IV sedation was administered by Anesthesia under continuous monitoring. Initially the Olympus GIF-140 video endoscope was inserted into the mouth. Esophagus intubated without any difficulty. It was gradually advanced into the stomach and duodenum and carefully examined. The bulb and the second part of the duodenum had scattered nonbleeding angiectasia that were cauterized using argon plasma with good hemostasis.. The scope at this time was withdrawn to the stomach, adequately insufflated with air, and upon careful examination, mucosa of the antrum, body, cardia and the fundus appeared normal. The scope was then withdrawn into the esophagus. Small hiatal hernia noted. The GE junction was located at 39 cm from the incisors. The esophagus appeared normal. There were no erosions or ulcerations seen and the patient tolerated the procedure well. IMPRESSION: 1. 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 2. Small hiatal hernia. RECOMMENDATIONS: The findings of this examination were discussed with the patient. He will be started on regular diet. Monitor CBC daily. Continue iron supplements..
[2023-08-31 15:15] VITALS: BP 133/76; PULSE 85; RESP 16
--- NOTE | 2023-08-31 15:27 | P.PN ---
Subjective Progress Note Date: 08/31/23 Hospital Course: 62-year-old male with history of hypertension, dyslipidemia, type 2 diabetes, BPH presenting with anemia. In the ED, temperature was 97.9, pulse 80, respiratory rate 19, blood pressure 118/62, saturating 98% on room air. WBC 5.1, hemoglobin 6.5, MCV 74.0, INR 1, PTT 21.8, BUN 26, creatinine 0.82, lactate 1.2, troponin negative. Patient given 1 unit of PRBCs in the ED. GI consulted. Pending further workup for anemia. Hemoglobin slightly up trended after 1 unit of PRBCs. Underwent EGD which showed scattered nonbleeding duodenal angiectasia along the duodenal sweep and the second part of duodenum he is now status post plasma coagulation, also noted to have small hiatal hernia. Subjective: Patient seen and examined at bedside. No acute events overnight. Pertinent positives and negatives as discussed above, a complete review of systems was performed and all other systems are negative. Vitals Signs Reviewed. General: nontoxic, no distress, appears at stated age, hard of hearing Derm: warm, dry Head: atraumatic, normocephalic, symmetric Eyes: EOMI, no lid lag, anicteric sclera, pupils equal round reactive to light ENT: Nose and ears atraumatic Neck: No thyromegaly, supple Mouth: no lip lesion, mucus membranes moist Cardiovascular: S1S2 reg, no murmur, no edema Lungs: clear to auscultation bilateral, no rhonchi, no rales, no wheeze, no accessory muscle use Abdominal: soft, nontender to palpation, no guarding, no appreciable organomegaly Ext: no gross muscle atrophy, muscle strength muscle strength 5 out of 5 in all 4 extremities, no contractures Neuro: CN II-XII grossly intact Psych: Alert, oriented, appropriate affect Data Reviewed Today: Pertinent Labs: Hemoglobin 7.2, MCV 76.7, BUN 18, creatinine 0.78, blood sugars range between 10 7-1 75, A1c 7.6 Imaging: No new imaging Assessment and Plan: Iron deficiency anemia Acute GI bleed Duodenal angiectasia Hiatal hernia Acute blood loss anemia -GI procedure note reviewed - s/p plasma coagulation -Undergoing 1 unit of PRBC transfusion -Repeat CBC tomorrow -on IV iron 125 mg daily -Started on regular diet. Hypertension -Hydrochlorothiazide 25 mg -Continue losartan 100 mg daily Dyslipidemia -Continue atorvastatin 40 mg daily BPH -Continue Flomax 0.4 mg daily Type 2 diabetes -Continue sliding scale insulin ACHS, monitor for hypoglycemia DVT ppx: SCDs Code status: Full code Anticipated discharge place: Pending clinical course Anticipated discharge time: Pending clinical course Objective - Vital Signs Vital signs: Vital Signs Temp 97.8 F 08/30/23 10:45 Pulse 85 08/31/23 14:00 Resp 16 08/31/23 14:00 BP 133/76 08/31/23 14:00 Pulse Ox 97 08/31/23 14:00 FiO2 Intake & Output 08/30/23 08/31/23 08/31/23 18:59 06:59 18:59 Intake Total 310 200 Balance 310 200 Intake: IV 200 Blood Product 310 Rc As-1 Unit 310 [id number] - Labs CBC & Chem 7: 08/31/23 06:35 08/31/23 06:35 Labs: Abnormal Lab Results - Last 24 Hours (Table) 08/30/23 08/30/23 08/30/23 Range/Units 05:29 17:27 21:15 RBC (4.30-5.90) m/uL Hgb (13.0-17.5) gm/dL Hct (39.0-53.0) % MCV (80.0-100.0) fL MCH (25.0-35.0) pg MCHC (31.0-37.0) g/dL RDW (11.5-15.5) % Chloride (98-107) mmol/L Glucose (74-99) mg/dL POC Glucose (mg/dL) 178 H 175 H (70-110) mg/dL Hemoglobin A1c (<=6.0) % Iron 11 L (65-175) UG/DL % Saturation 2.53 L (15.00-50.00) Ferritin 9.2 L (22.0-322.0) ng/mL 08/31/23 08/31/23 08/31/23 Range/Units 06:34 06:35 06:35 RBC 3.14 L (4.30-5.90) m/uL Hgb 7.2 L (13.0-17.5) gm/dL Hct 24.1 L (39.0-53.0) % MCV 76.7 L (80.0-100.0) fL MCH 22.8 L (25.0-35.0) pg MCHC 29.7 L (31.0-37.0) g/dL RDW 16.6 H (11.5-15.5) % Chloride (98-107) mmol/L Glucose (74-99) mg/dL POC Glucose (mg/dL) 117 H (70-110) mg/dL Hemoglobin A1c 7.6 H (<=6.0) % Iron (65-175) UG/DL % Saturation (15.00-50.00) Ferritin (22.0-322.0) ng/mL 08/31/23 08/31/23 Range/Units 06:35 08:10 RBC (4.30-5.90) m/uL Hgb (13.0-17.5) gm/dL Hct (39.0-53.0) % MCV (80.0-100.0) fL MCH (25.0-35.0) pg MCHC (31.0-37.0) g/dL RDW (11.5-15.5) % Chloride 108 H (98-107) mmol/L Glucose 107 H (74-99) mg/dL POC Glucose (mg/dL) 139 H (70-110) mg/dL Hemoglobin A1c (<=6.0) % Iron (65-175) UG/DL % Saturation (15.00-50.00) Ferritin (22.0-322.0) ng/mL
--- NOTE | 2023-08-31 15:33 | P.DS ---
Providers Date of admission: 08/30/23 06:42 Expected date of discharge: 08/31/23 Attending physician: Leroy Almaguer MD Consults: 08/30/23 06:40 Consult Physician Routine Consulting Provider: Cyndie Pemberton Consult Reason/Comments: gi bleeding, anemia Do you want consulting provider notified?: Yes, Notify in am Primary care physician: Adolfo Nash MD Hospital Course: Discharge Diagnosis: Iron deficiency anemia Acute GI bleed Duodenal angiectasia Hiatal hernia Acute blood loss anemia Hypertension Dyslipidemia BPH Type 2 diabetes Hospital Course: 62-year-old male with history of hypertension, dyslipidemia, type 2 diabetes, BPH presenting with anemia. In the ED, temperature was 97.9, pulse 80, respiratory rate 19, blood pressure 118/62, saturating 98% on room air. WBC 5.1, hemoglobin 6.5, MCV 74.0, INR 1, PTT 21.8, BUN 26, creatinine 0.82, lactate 1.2, troponin negative. Patient given 1 unit of PRBCs in the ED. GI consulted. Pending further workup for anemia. Hemoglobin slightly up trended after 1 unit of PRBCs. Underwent EGD which showed scattered nonbleeding duodenal angiectasia along the duodenal sweep and the second part of duodenum he is now status post plasma coagulation, also noted to have small hiatal hernia. Patient being discharged home. Patient seen and examined at bedside. Vital signs reviewed and stable. General: nontoxic, no distress, appears at stated age, hard of hearing Derm: warm, dry Head: atraumatic, normocephalic, symmetric Eyes: EOMI, no lid lag, anicteric sclera, pupils equal round reactive to light ENT: Nose and ears atraumatic Neck: No thyromegaly, supple Mouth: no lip lesion, mucus membranes moist Cardiovascular: S1S2 reg, no murmur, no edema Lungs: clear to auscultation bilateral, no rhonchi, no rales, no wheeze, no accessory muscle use Abdominal: soft, nontender to palpation, no guarding, no appreciable organomegaly Ext: no gross muscle atrophy, muscle strength muscle strength 5 out of 5 in all 4 extremities, no contractures Neuro: CN II-XII grossly intact Psych: Alert, oriented, appropriate affect A total of 33 minutes of time were spent preparing this complex discharge summary. Patient was discharged on 08/31/2023 at 1531. Patient Condition at Discharge: Stable Plan - Discharge Summary New Discharge Prescriptions: New Ascorbic Acid [Vitamin C] 500 mg PO DAILY #60 tablet Ferrous Sulfate [Iron (65 MG Elemental)] 325 mg PO DAILY #60 tab Pantoprazole [Protonix] 40 mg PO DAILY #90 tab Continue glipiZIDE [Glucotrol] 5 mg PO BID Atorvastatin [Lipitor] 40 mg PO DAILY Pioglitazone HCl/Metformin HCl [Pioglitazone-Metformin -841] 1 each PO Q12H Losartan Potassium 100 mg PO DAILY Tamsulosin HCl [Flomax] 0.4 mg PO DAILY hydroCHLOROthiazide 25 mg PO DAILY Fluticasone Nasal [place] [Flonase Nasal [place]] 2 spray EA NOSTRIL DAILY Dapagliflozin Propanediol [Farxiga] 10 mg PO DAILY Loratadine [Claritin] 10 mg PO DAILY Discharge Medication List Atorvastatin [Lipitor] 40 mg PO DAILY 07/24/16 [History] Losartan Potassium 100 mg PO DAILY 07/24/16 [History] Pioglitazone HCl/Metformin HCl [Pioglitazone-Metformin -284] 1 each PO Q12H 07/24/16 [History] glipiZIDE [Glucotrol] 5 mg PO BID 07/24/16 [History] Tamsulosin HCl [Flomax] 0.4 mg PO DAILY 07/15/19 [History] hydroCHLOROthiazide 25 mg PO DAILY 07/15/19 [History] Dapagliflozin Propanediol [Farxiga] 10 mg PO DAILY 08/30/23 [History] Fluticasone Nasal [place] [Flonase Nasal [place]] 2 spray EA NOSTRIL DAILY 08/30/23 [History] Loratadine [Claritin] 10 mg PO DAILY 08/30/23 [History] Ascorbic Acid [Vitamin C] 500 mg PO DAILY #60 tablet 08/31/23 [Rx] Ferrous Sulfate [Iron (65 MG Elemental)] 325 mg PO DAILY #60 tab 08/31/23 [Rx] Pantoprazole [Protonix] 40 mg PO DAILY #90 tab 08/31/23 [Rx] Follow up Appointment(s)/Referral(s): Adolfo Nash MD [Primary Care Provider] - 1-2 days Cyndie Pemberton MD [STAFF PHYSICIAN] - 1 Week Patient Instructions/Handouts: Gastrointestinal Bleeding (DC) Activity/Diet/Wound Care/Special Instructions: Please see PCP and GI outpatient. Discharge Disposition: HOME SELF-CARE
[2023-08-31] MEDS ORDERED: INSULIN ASPART (NovoLOG) 100 UNIT/ML VIAL SQ SCH (17:30)
[2023-09-01] MEDS ORDERED: hydroCHLOROthiazide 25 MG TAB PO SCH (09:00)
== END 2023-08-31 15:55 | disposition home or self-care (01) | DRG 378 ==
LOC: EC 05:14 → 3SCARD 06:42
PROVIDERS: ADMIT Internal Medicine; ATTEND Internal Medicine
PROC: 30233N1 Transfusion of Nonautologous Red Blood Cells into Peripheral Vein, Percutaneous Approach (ICD-10-PCS; 2023-08-30)
PROC: 0W3P8ZZ Control Bleeding in Gastrointestinal Tract, Via Natural or Artificial Opening Endoscopic (ICD-10-PCS; principal; 2023-08-31 13:55)
DX: K31.811 Angiodysplasia of stomach and duodenum with bleeding (principal); D62 Acute posthemorrhagic anemia; K57.30 Diverticulosis of large intestine without perforation or abscess without bleeding; K64.8 Other hemorrhoids; K27.9 Peptic ulcer, site unspecified, unspecified as acute or chronic, without hemorrhage or perforation; N40.0 Benign prostatic hyperplasia without lower urinary tract symptoms; K44.9 Diaphragmatic hernia without obstruction or gangrene; I10 Essential (primary) hypertension; H91.90 Unspecified hearing loss, unspecified ear; E78.5 Hyperlipidemia, unspecified; K29.70 Gastritis, unspecified, without bleeding; Z87.19 Personal history of other diseases of the digestive system; Z87.442 Personal history of urinary calculi; Z79.899 Other long term (current) drug therapy; Z79.84 Long term (current) use of oral hypoglycemic drugs; Z79.890 Hormone replacement therapy; Z86.010 Personal history of colon polyps
CPT/HCPCS: 36415; 36430; 43255; 80048; 80053; 82728; 83036; 83540; 83550; 83605; 84484; 85025; 85027; 85610; 85730; 86850; 86900; 86901; 86920; 96361; 96365; 96366; 96375; 96376; 99291

== ENCOUNTER → 2023-10-11 | Outpatient (CLI) | payer BC, MEDICARE ==
[2023-10-11 15:46] LABS: HCT 27.2 % (39.6-50.0); HGB 7.9 g/dL (13.0-17.0); MCH 22.5 pg (27.0-32.0); MCV 77.5 FL (80.0-97.0); Mean Platelet Volume 9.5 FL (9.5-12.2); NRBC Per 100 WBC 0 X 10*3/uL (0.00-0.01); Platelet Count 245 X 10*3/uL (140-440); RBC 3.51 X 10*6/uL (4.40-5.60); RDW 26.2 % (11.5-14.5); WBC 3.79 X 10*3/uL (4.50-10.00)
[2023-10-11 16:12] LABS: Anisocytosis (M) 2+; Basophils # (A) 0.03 X 10*3/uL (0.00-0.10); Basophils % (A) 0.8 %; Eosinophils # (A) 0.03 X 10*3/uL (0.04-0.35); Eosinophils % (A) 0.8 %; Lymphocytes # (A) 1.03 X 10*3/uL (0.90-5.00); Lymphocytes % (A) 27.2 %; Monocytes # (A) 0.36 X 10*3/uL (0.20-1.00); Monocytes % (A) 9.5 %; Neutrophils # (A) 2.33 X 10*3/uL (1.80-7.70); Neutrophils % (A) 61.4 %
== END | disposition home or self-care (01) ==
LOC: LABWHC1 11:11
PROVIDERS: ATTEND Internal Medicine Gastroenterology
DX: D50.9 Iron deficiency anemia, unspecified (principal)
CPT/HCPCS: 36415; 85025